=== PATIENT | female | born 1955 | race Caucasian/White ===

== ENCOUNTER 2018-01-13 18:01 | Observation (INO) ==
[2018-01-13] MEDS ORDERED: Nitroglycerin 0.4 MG TAB.SUBL SL ONE (18:07)
[2018-01-13] MEDS ORDERED: Aspirin 81 MG TAB.CHEW PO ONE (18:07)
[2018-01-13 18:32] LABS: Basophils % 0.4 %; Eosinophils # 0.2 K/mcL (0.0-0.6); Eosinophils % 1.7 %; Hematocrit 40.3 % (35.3-44.9); Hemoglobin 12.8 g/dL (11.5-15.4); Immature Granulocytes % 0.5 % (0-4); Lymphocytes # 2.7 K/mcL (0.6-4.6); Lymphocytes % 27.1 %; Mean Corpuscular HGB Conc 31.8 g/dL (31.6-35.5); Mean Corpuscular Hemoglobin 29.8 pg (28.0-33.3); Mean Corpuscular Volume 93.7 fL (83.0-100.0); Mean Platelet Volume 10.2 fL (9.4-12.4); Monocytes # 0.6 K/mcL (0.0-1.3); Monocytes % 5.6 %; Neutrophils # 6.5 K/mcL (1.6-8.9); Platelet Count 258 K/mcL (140-400); Red Cell Distribution Width 14.6 % (11.5-14.5); Segmented Neutrophils % 64.7 %
[2018-01-13 18:38] LABS: INR 0.9; Prothrombin Time 10.1 Seconds (9.4-12.1)
--- NOTE | 2018-01-13 18:40 | Emergency Department Note ---
Disposition Clinical Impression: Chest pain of uncertain etiology Disposition: Admitted As Inpatient Condition: Fair Chest Pain HPI - General Chief Complaint: ED Chest Pain Stated Complaint: "chest pain" Source: EMS Limitations: no limitations Vital Signs Reviewed: Yes Nursing Notes Reviewed: Yes - History of Present Illness HPI Narrative: Ms. Brown, 62-year-old female, presents from home via EMS for evaluation of chest pain. Onset one hour prior to arrival while sitting. Described as lower chest intense squeeze with radiation to her back. Associated with diaphoresis. No radiation to her neck or her bilateral upper extremities. Associated with nausea. She took a single sublingual nitroglycerin glycerin of her boyfriends prescription (4 years ) which did substantially improve her chest pain down to a 1-2. She now has a headache that is of greater concern to her that her chest pain. PMH: Obesity, hypertension, hyperlipidemia. History of "an arrhythmia," of unknown specifics to the patient. She does not follow with cardiology ROS: Positive: As above Negative: Fever, chills, vomiting, dyspnea, abdominal pain, weakness/numbness/ tingling, changes in vision, neck pain Severity scale (1-10): 4 - Related Data Home Medications Medication Instructions Recorded Confirmed Aspirin 81 mg PO QAM 12/07/15 01/13/18 DiphenhydraMINE [Benadryl] 50 mg PO HS 12/07/15 01/13/18 Pantoprazole Sodium [Protonix] 40 mg PO BID 12/07/15 01/13/18 Simvastatin [Zocor] 20 mg PO QPM 12/07/15 01/13/18 Fluticasone/Salmeterol [Advair 1 puff IH BID 11/15/17 01/13/18 100-50 Diskus] Ibuprofen 1 tab PO BID PRN 11/15/17 01/13/18 Metoprolol Tartrate 25 mg PO BID 11/15/17 01/13/18 Venlafaxine [Effexor] 37.5 mg PO BID 11/15/17 01/13/18 Previous Rx's Medication Instructions Recorded Albuterol Sulfate [Ventolin Hfa] 2 puff IH Q4-6H #1 hfa.aer.ad 01/19/17 Allergies Allergy/AdvReac Type Severity Reaction Status Date / Time Sulfa (Sulfonamide AdvReac See Verified 12/03/17 09:19 Antibiotics) Comments All systems ED: reviewed and negative except as stated. Review of Systems: As Per HPI Chest Pain PMH - Past Medical History Medical history: Reports: non-contributory, GERD, hyperlipidemia, hypertension Surgical history: Reports: cataract, hysterectomy, knee replacement Psychiatric history: Reports: anxiety - Social History Smoking Status: Former smoker Alcohol use: Reports: none Drug use: Reports: none Physical Exam Vital Signs Reviewed General: Patient is alert, oriented, and in mild distress from her headache. Head: atraumatic, normocephalic Eye: normal appearance, PERRL, EOMI, no scleral icterus, no conjunctival injection ENT: mucous membranes moist, normal external ear exam Neck: normal inspection, trachea midline, full ROM Chest: normal inspection, symmetric chest rise Respiratory: Poor respiratory effort. Bilateral breath sounds are clear without wheezing, crackles, or rhonchi. Cardiovascular: Regular rate and rhythm. No clicks, rubs, gallops, or murmors. Normal heart sounds. Bilateral radial posterior tibial pulses 2/44. Abdomen: Obese. Bowel sounds present normoactive x-4 quadrants. Abdomen is soft, nondistended, and nontender. No guarding or rebound. Musculoskeletal: Spontaneously moving all extremities. Skin: warm, dry, intact. Neuro: Alert and oriented x4. Sensation light touch intact. Psych: Patient's affect is appropriate for situation. - General Limitations: no limitations General appearance: alert Course Course Narrative: Chart check shows from November 2015: Today stress test perfusion imaging negative for ischemia or infarct. Rare isolated PVCs and one episode of ventricular bigeminy. Gated EF =>70%. No ischemic EKG changes. Echo showed normal LV systolic function, LVEF 65-70%. EKG dated 01/13/18 at 18:06 interpreted as sinus rhythm with rate of 77. Normal intervals. Normal axis. Nonspecific ST-T changes. Compared to previous dated 11/05/2017 showing no acute ischemic changes comparison. Serum hematology is unremarkable. Serum chemistry shows for less than 0.03. No renal dysfunction. Discussed the above the patient is agreement to admission for continued evaluation to rule out coronary syndrome. I discussed the patient with the admitting hospitalist who agrees to accept the patient for continued evaluation and management for chest pain rule out ACS. Vital Signs Temperature 97.2 F L 01/13/18 18:03 Pulse Rate 75 01/13/18 18:03 Respiratory Rate 16 01/13/18 18:03 Blood Pressure 155/83 01/13/18 18:03 O2 Sat by Pulse Oximetry 94 01/13/18 18:03 Temperature 98.2 F 01/13/18 20:39 Pulse Rate 78 01/13/18 20:39 Respiratory Rate 17 01/13/18 20:39 Blood Pressure 125/76 01/13/18 20:39 O2 Sat by Pulse Oximetry 92 01/13/18 20:39 Oxygen Delivery Oxygen Delivery Room Air Chest Pain - Lab Data Result diagrams: 01/13/18 18:16 01/13/18 18:16 Lab Results 01/13/18 01/13/18 01/13/18 Range/Units 18:16 18:16 18:16 WBC 10.0 (4.3-11.1) K/mcL RBC 4.30 (3.82-4.97) M/mcL Hgb 12.8 (11.5-15.4) g/dL Hct 40.3 (35.3-44.9) % MCV 93.7 (83.0-100.0) fL MCH 29.8 (28.0-33.3) pg MCHC 31.8 (31.6-35.5) g/dL RDW 14.6 H (11.5-14.5) % Plt Count 258 (140-400) K/mcL MPV 10.2 (9.4-12.4) fL Immature Gran % 0.5 (0-4) % Seg Neutrophils % 64.7 % Lymphocytes % 27.1 % Monocytes % 5.6 % Eosinophils % 1.7 % Basophils % 0.4 % Neutrophils # 6.5 (1.6-8.9) K/mcL Lymphocytes # 2.7 (0.6-4.6) K/mcL Monocytes # 0.6 (0.0-1.3) K/mcL Eosinophils # 0.2 (0.0-0.6) K/mcL Basophils # 0.0 (0.0-0.2) K/mcL PT 10.1 (9.4-12.1) Seconds INR 0.9 APTT 27.1 (26.0-36.0) Seconds Sodium 139 (136-145) mEq/L Potassium 4.0 (3.5-5.1) mEq/L Chloride 104 (98-107) mEq/L Carbon Dioxide 26 (23-29) mEq/L BUN 19 (8-23) mg/dL Creatinine 0.71 (0.60-1.20) mg/dL Est GFR ( Amer) > 60 (> 60) Est GFR (Non-Af Amer) > 60 (> 60) BUN/Creatinine Ratio 27 H (6-26) Glucose 117 H (70-105) mg/dL Calculated Osmolality 291 (280-300) Calcium 9.2 (8.6-10.3) mg/dL Troponin I < 0.03 (< 0.04) ng/mL Lipase 16 (11-82) Units/L Heart Score - Score History: Slightly Suspicious EKG: Non Specific repolarisation Disturbance Age: 45-65 Risk Factors: Equal/Greater than 3 risk factor or history of atherosclerotic disease Troponin: Less than normal limit HEART Score Total: 4
[2018-01-13 18:41] LABS: Activated Partial Thrombo Time 27.1 Seconds (26.0-36.0)
[2018-01-13 18:50] LABS: BUN/Creatinine Ratio 27 (6-26); Blood Urea Nitrogen 19 mg/dL (8-23); Calcium 9.2 mg/dL (8.6-10.3); Carbon Dioxide 26 mEq/L (23-29); Chloride 104 mEq/L (98-107); Glucose 117 mg/dL (70-105); Osmolality,Calculated 291 (280-300); Sodium 139 mEq/L (136-145); eGFR For African Americans > 60 (> 60); eGFR For Non-African Americans > 60 (> 60)
[2018-01-13] MEDS: Ondansetron 4 MG/2 ML VIAL IVP ONE ×2 (18:51→19:05)
[2018-01-13 18:52] LABS: Troponin I < 0.03 ng/mL (< 0.04)
[2018-01-13] MEDS ORDERED: Nitroglycerin 0.4 MG TAB.SUBL SL PRN (19:35)
[2018-01-13] MEDS ORDERED: Naloxone 0.4 MG/ML INJ IVP PRN (19:35)
--- NOTE | 2018-01-13 19:41 | Internal Med History&Physical ---
Date of Encounter: 01/13/18 Time of Encounter: 19:39 Internal Medicine - H&P: HPI Chief complaint: chest pain Admitted From: Emergency Dept Plans for Post Hospital Care: Home History of present illness: Ms. Brown is a 62 year old female with history of morbid obesity, HTN, HLD who presents from home via EMS for evaluation of chest pain. Started about an hour or so prior to arrival. Was not exertional. Radiates to back. + nausea and diaphoresis. SL nitro from boyfriend helped significantly. Had headache afterwards. No blurry vision, fever, chills, shortness of breath, abdominal pain, diarrhea, constipation, urinary symptoms, or neurological symptoms. Work up in the ED unremarkable. EKG with no acute ST or T wave changes. Trops first set not elevated. Hemodynamically stable. Given ASA 324 mg in ED as well as SL nitro. Had a negative stress test 2 years ago. Past Med Surg Social Fam HX - Past Medical History Medical history: non-contributory, GERD, hyperlipidemia, hypertension Psychiatric history: anxiety - Past Surgical History Surgical History: cataract, hysterectomy, knee replacement - Social History Smoking Status: Former smoker Smokeless Tobacco Status: No Alcohol use: none Drug use: none - Family History Brother Hx Family Cardiac Disorders: Yes (CABG 50s) Mother Living Status: Hx Family Cardiac Disorders: Yes Hx Family Neurologic Disorders: Yes Internal Medicine - H&P: Meds Aspirin 81 mg PO QAM 12/07/15 [History] DiphenhydraMINE [Benadryl] 50 mg PO HS 12/07/15 [History] Pantoprazole Sodium [Protonix] 40 mg PO BID 12/07/15 [History] Simvastatin [Zocor] 20 mg PO QPM 12/07/15 [History] Albuterol Sulfate [Ventolin Hfa] 2 puff IH Q4-6H #1 hfa.aer.ad 01/19/17 [Rx] Fluticasone/Salmeterol [Advair 100-50 Diskus] 1 puff IH BID 11/15/17 [History] Ibuprofen 1 tab PO BID PRN 11/15/17 [History] Metoprolol Tartrate 25 mg PO BID 11/15/17 [History] Venlafaxine [Effexor] 37.5 mg PO BID 11/15/17 [History] 3 Allergy/AdvReac Type Severity Reaction Status Date / Time Sulfa (Sulfonamide AdvReac See Verified 12/03/17 09:19 Antibiotics) Comments All Systems PM: A 10-system review of systems was performed and is negative for pertinent findings except as documented above in the HPI. Review of systems: All systems reviewed are negative except as mentioned above - Constitutional Vitals: Temp Pulse Resp BP Pulse Ox 97.2 F L 80 16 155/83 94 01/13/18 18:03 01/13/18 19:03 01/13/18 19:03 01/13/18 19:03 01/13/18 19:03 Exam: GEN: NAD HEENT: AT, NC, No cyanosis, oral mucosa is moist, No JVD Lymphatics: No lymphadenoapthy Eyes: Extrocular muscles intact, anicteric CVS:RRR. S1, S2, No m/r/g RESP: CTAB ABD: Soft, NT, ND, +BS EXT: No edema, No rashes, 2+ DP NEURO: Nonfocal, CN II-XII intact, No focal motor or sensory deficits Psych: Cooperative, Not anxious or depressed Internal Med - H&P Results - Labs CBC & Chem 7: 01/13/18 18:16 01/13/18 18:16 Labs: Short CBC 01/13/18 Range/Units 18:16 WBC 10.0 (4.3-11.1) K/mcL Hgb 12.8 (11.5-15.4) g/dL Hct 40.3 (35.3-44.9) % Plt Count 258 (140-400) K/mcL Neutrophils # 6.5 (1.6-8.9) K/mcL BMP 01/13/18 18:16 Sodium 139 Potassium 4.0 Chloride 104 Carbon Dioxide 26 BUN 19 Creatinine 0.71 Glucose 117 H Calcium 9.2 Cardiac Enzymes 01/13/18 Range/Units 18:16 Troponin I < 0.03 (< 0.04) ng/mL - Impressions ITS Impressions Chest X-Ray 01/13/18 18:07 IMPRESSION: Stable portable study. D/ / Valentina Calvo Cha, MD / Valentina Calvo Cha, MD Interpreting Provider: Valentina Calvo Cha, MD - Assessment and plan (1) Chest pain Current Visit: No Status: Acute Assessment and plan: Admit to tele. Trend cardiac enzymes. Stress test in am. NPO after midnight. Check lipid panel and A1c. SL nitro PRN. Qualifiers: Chest pain type: unspecified Qualified Code(s): R07.9 - Chest pain, unspecified (2) HTN (hypertension) Current Visit: No Status: Chronic Assessment and plan: c/w metoprolol. BP is stable. Qualifiers: Hypertension type: essential hypertension Qualified Code(s): I10 - Essential (primary) hypertension (3) Hyperlipemia Current Visit: No Status: Chronic Assessment and plan: c/w statin. f/u on lipid panel Qualifiers: Hyperlipidemia type: unspecified Qualified Code(s): E78.5 - Hyperlipidemia , unspecified (4) DVT prophylaxis Current Visit: No Status: Acute Assessment and plan: heparin SQ - Time Spent With Patient Total time spent is greater than 50% in coordination of care (as documented) at patient's floor/unit and/or counseling patient:
[2018-01-13 19:59] LABS: Lipase 16 Units/L (11-82)
--- NOTE | 2018-01-13 20:07 | Emergency Department Note ---
Disposition Clinical Impression: Chest pain of uncertain etiology Disposition: Admitted As Inpatient Condition: Fair General Adult HPI - General Chief complaint: ED Chest Pain Stated complaint: "chest pain" Source: EMS Limitations: no limitations - History of Present Illness Pain Scale: 4 - Related Data Home Medications Medication Instructions Recorded Confirmed Aspirin 81 mg PO QAM 12/07/15 01/13/18 DiphenhydraMINE [Benadryl] 50 mg PO HS 12/07/15 01/13/18 Pantoprazole Sodium [Protonix] 40 mg PO BID 12/07/15 01/13/18 Simvastatin [Zocor] 20 mg PO QPM 12/07/15 01/13/18 Fluticasone/Salmeterol [Advair 1 puff IH BID 11/15/17 01/13/18 100-50 Diskus] Ibuprofen 1 tab PO BID PRN 11/15/17 01/13/18 Metoprolol Tartrate 25 mg PO BID 11/15/17 01/13/18 Venlafaxine [Effexor] 37.5 mg PO BID 11/15/17 01/13/18 Previous Rx's Medication Instructions Recorded Albuterol Sulfate [Ventolin Hfa] 2 puff IH Q4-6H #1 hfa.aer.ad 01/19/17 Allergies Allergy/AdvReac Type Severity Reaction Status Date / Time Sulfa (Sulfonamide AdvReac See Verified 12/03/17 09:19 Antibiotics) Comments Past Medical History - Past Medical History Medical history: Reports: non-contributory, GERD, hyperlipidemia, hypertension Surgical history: Reports: cataract, hysterectomy, knee replacement Psychiatric history: Reports: anxiety - Social History Smoking Status: Former smoker Smokeless Tobacco Status: No Alcohol use: Reports: none Drug use: Reports: none Physical Exam - General Limitations: no limitations General appearance: alert Course Vital Signs Temperature 97.2 F L 01/13/18 18:03 Pulse Rate 75 01/13/18 18:03 Respiratory Rate 16 01/13/18 18:03 Blood Pressure 155/83 01/13/18 18:03 O2 Sat by Pulse Oximetry 94 01/13/18 18:03 Temperature 98.2 F 01/13/18 20:39 Pulse Rate 78 01/13/18 20:39 Respiratory Rate 17 01/13/18 20:39 Blood Pressure 125/76 01/13/18 20:39 O2 Sat by Pulse Oximetry 92 04/30/18 20:39 Oxygen Delivery Oxygen Delivery Room Air Medical Decision Making - Lab Data Result diagrams: 01/13/18 18:16 01/13/18 18:16 Lab Results 01/13/18 01/13/18 01/13/18 Range/Units 18:16 18:16 18:16 WBC 10.0 (4.3-11.1) K/mcL RBC 4.30 (3.82-4.97) M/mcL Hgb 12.8 (11.5-15.4) g/dL Hct 40.3 (35.3-44.9) % MCV 93.7 (83.0-100.0) fL MCH 29.8 (28.0-33.3) pg MCHC 31.8 (31.6-35.5) g/dL RDW 14.6 H (11.5-14.5) % Plt Count 258 (140-400) K/mcL MPV 10.2 (9.4-12.4) fL Immature Gran % 0.5 (0-4) % Seg Neutrophils % 64.7 % Lymphocytes % 27.1 % Monocytes % 5.6 % Eosinophils % 1.7 % Basophils % 0.4 % Neutrophils # 6.5 (1.6-8.9) K/mcL Lymphocytes # 2.7 (0.6-4.6) K/mcL Monocytes # 0.6 (0.0-1.3) K/mcL Eosinophils # 0.2 (0.0-0.6) K/mcL Basophils # 0.0 (0.0-0.2) K/mcL PT 10.1 (9.4-12.1) Seconds INR 0.9 APTT 27.1 (26.0-36.0) Seconds Sodium 139 (136-145) mEq/L Potassium 4.0 (3.5-5.1) mEq/L Chloride 104 (98-107) mEq/L Carbon Dioxide 26 (23-29) mEq/L BUN 19 (8-23) mg/dL Creatinine 0.71 (0.60-1.20) mg/dL Est GFR ( Amer) > 60 (> 60) Est GFR (Non-Af Amer) > 60 (> 60) BUN/Creatinine Ratio 27 H (6-26) Glucose 117 H (70-105) mg/dL Calculated Osmolality 291 (280-300) Calcium 9.2 (8.6-10.3) mg/dL Troponin I < 0.03 (< 0.04) ng/mL Lipase 16 (11-82) Units/L Attestation Statement - Attestation Attestation: I examined this patient and my medical decision-making was reviewed with the Resident Physician, Dr. Gloria. I agree with the documented findings, disposition and treatment plan as described except to the extent set forth below. Patient is a 62-year-old white female with numerous risk factors who presents to the emergency department with a one-hour history of chest pain that began at rest. Pain is substernal nonradiating associated with diaphoresis and nausea. Patient denies any shortness of breath, no abdominal pain or flank pain no lightheadedness or syncope. Patient states that approximately 25-30 years ago she had a heart catheter for chest pain at that time and was told that she had disease in multiple vessels. Patient is not had a heart catheter since that time approximately 3 years ago was admitted here for chest pain and had a stress test. Patient tonight when the pain came on took one of her boyfriend's nitroglycerin which almost completely relieved her symptoms. I agree with patient's physical exam findings as documented. Vital signs are stable on arrival patient is rating pain of one out of 10 in severity on time of presentation. Patient's EKG shows no acute ST or T-wave changes sinus rhythm. Patient was given aspirin but refused any further nitroglycerin. Patient's lab evaluation is unremarkable overall and chest x-ray is within normal limits. Patient's had no recurrence of symptoms or worsening of symptoms. Patient will be admitted for further evaluation of chest pain case will be discussed with hospitalist.
[2018-01-13] MEDS: Budesonide/Formoterol 80/4.5 MDI IH SCH (21:37)
[2018-01-13] MEDS: *HR* Heparin 5,000 UNIT/ML VIAL SQ SCH (22:11)
[2018-01-13] MEDS: Acetaminophen 325 MG TABLET PO PRN (23:44)
[2018-01-14] MEDS: *HR* Heparin 5,000 UNIT/ML VIAL SQ SCH ×3 (05:20→21:26)
[2018-01-14] MEDS ORDERED: Regadenoson 0.4 MG/5 ML SYRINGE IVP ONE (05:30)
[2018-01-14 09:34] LABS: Estimated Average Glucose 140 mg/dl; Hemoglobin A1C 6.5 %
[2018-01-14] MEDS: Aspirin 81 MG TAB.CHEW PO SCH (09:45)
[2018-01-14] MEDS: Budesonide/Formoterol 80/4.5 MDI IH SCH ×2 (10:14→21:18)
--- NOTE | 2018-01-14 16:15 | Electrocardiograph Report ---
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
--- NOTE | 2018-01-14 18:56 | Internal Med Progress Note ---
Date of Encounter: 01/14/18 Time of Encounter: 18:53 - Assessment and plan (1) Chest pain Current Visit: Yes Status: Acute Assessment and plan: Patient sent for evaluation of nonexertional radiating chest pain, was positive for nausea and diaphoresis. Chest pain was responsive to nitroglycerin. Concerning for [place]. Risk factors include obesity, hypertension, and family history. Underwent phase I nuclear stress today and will do secondary nuclear stress tomorrow morning. No ST elevations, depressions or T-wave inversions noted on EKG Troponin is negative at 0.033 Continuous telemetry Lipid panel grossly normal Continue SL nitroglycerin when necessary, however if possible refrain from giving SL nitroglycerin after midnight Patient may for now however needs to be nothing by mouth at midnight Continue aspirin, statin, beta jayden Consider counseling cardiology based on results of stress test Qualifiers: Chest pain type: unspecified Qualified Code(s): R07.9 - Chest pain, unspecified (2) Hyperlipemia Current Visit: Yes Status: Chronic Assessment and plan: Continue statin. Lipid panel grossly normal with cholesterol 177, LDL 91, HDL of 59 and triglycerides of 135. Qualifiers: Hyperlipidemia type: unspecified Qualified Code(s): E78.5 - Hyperlipidemia , unspecified (3) HTN (hypertension) Current Visit: Yes Status: Chronic Assessment and plan: BP is currently stable, continue anti-HTN medications Hold a.m. dose of beta jayden prior to stress test Qualifiers: Hypertension type: essential hypertension Qualified Code(s): I10 - Essential (primary) hypertension (4) DVT prophylaxis Current Visit: Yes Status: Acute Assessment and plan: Continue heparin SQ - Time Spent With Patient Total time spent is greater than 50% in coordination of care (as documented) at patient's floor/unit and/or counseling patient: - Subjective Interval history: Ms. Brown is a 62 year old female with history of morbid obesity, HTN, HLD who presents from home via EMS for evaluation of chest pain. Started about an hour or so prior to arrival. Was not exertional. Radiates to back. + nausea and diaphoresis. SL nitro from boyfriend helped significantly. Patient seen and examined at the bedside. Denying any current chest pain now. Also, the denying any shortness of breath or diaphoresis. In no distress at this time - Constitutional Vitals: Temp Pulse Resp BP Pulse Ox 98.0 F 77 18 119/64 95 01/14/18 16:06 01/14/18 16:06 01/14/18 16:06 01/14/18 16:06 01/14/18 16:06 General appearance: Present: cooperative, A&O X 3, no acute distress, answers questions appropriately - Head Head exam: Present: atraumatic, normocephalic - Eye Eye exam: Present: PERRL, conjuntiva pink, sclera anicteric Pupils: Present: PERRL - Neck Neck exam general surgery: Present: supple, trachea midline. Absent: lymphadenopathy - Respiratory Respiratory exam: Present: CTAB. Absent: accessory muscle use, rales, rhonchi, wheezes - Cardiovascular Cardiovascular exam: Present: RRR, +S1, +S2. Absent: diastolic murmur, gallop, rubs, systolic murmur - GI/Abdominal GI/Abdominal exam: Present: normal bowel sounds, soft, no peritoneal signs. Absent: distended, tenderness - Extremities Exam Extremities exam: Present: warm, radial pulses palpable and symmetrical. Absent : calf tenderness, cyanotic, pedal edema - Neurological Exam Neurological exam: Present: CN II-XII intact, oriented X3, no focal deficits. Absent: pronater drift, facial droop, speech deficit - Skin Skin exam: Present: dry, intact Internal Medicine: Result - Labs CBC & Chem 7: 01/13/18 18:16 01/13/18 18:16 Labs: Cardiac Enzymes 01/14/18 01/14/18 Range/Units 00:17 06:03 Troponin I < 0.03 < 0.03 (< 0.04) ng/mL - ABG Interpretation ABG results: PT/INR, D-dimer PT 10.1 Seconds (9.4-12.1) 01/13/18 18:16 Consult Discharge Plan - Plan Referrals: Ely Devine DO [Primary Care Provider] -
[2018-01-14] MEDS: Acetaminophen 325 MG TABLET PO PRN (19:57)
[2018-01-15] MEDS: *HR* Heparin 5,000 UNIT/ML VIAL SQ SCH ×2 (05:18→14:14)
[2018-01-15] MEDS: Budesonide/Formoterol 80/4.5 MDI IH SCH (08:04)
[2018-01-15] MEDS: Aspirin 81 MG TAB.CHEW PO SCH (08:27)
[2018-01-15] MEDS: Acetaminophen 325 MG TABLET PO PRN (11:11)
[2018-01-15 11:21] VITALS: BP 130/64
--- NOTE | 2018-01-15 13:17 | Internal Med Progress Note ---
Date of Encounter: 01/15/18 Time of Encounter: 12:30 - Assessment and plan (1) Chest pain Current Visit: Yes Status: Acute Assessment and plan: Patient presented with nonexertional radiating chest pain with nausea and diaphoresis. Chest pain improved with nitroglycerin. Multiple risk factors including obesity, hypertension and family history of early cardiac demise. Underwent today stress and was found to be negative for ischemia. Troponins found to be negative throughout the stay, EKG shows no ST elevation, depressions or T-wave inversions. Chest pain has subsided. She remains hemodynamically stable. She is ready for discharge Follow-up with cardiology in 1 week Follow-up with PCP in one week May benefit from echocardiogram however, will defer this to cardiology during follow-up visit Qualifiers: Chest pain type: unspecified Qualified Code(s): R07.9 - Chest pain, unspecified (2) Hyperlipemia Current Visit: Yes Status: Chronic Qualifiers: Hyperlipidemia type: unspecified Qualified Code(s): E78.5 - Hyperlipidemia , unspecified (3) HTN (hypertension) Current Visit: Yes Status: Chronic Assessment and plan: BP is currently stable and has remained so throughout hospital stay., continue anti-HTN medications upon discharge Qualifiers: Hypertension type: essential hypertension Qualified Code(s): I10 - Essential (primary) hypertension (4) DVT prophylaxis Current Visit: Yes Status: Acute - Time Spent With Patient Total time spent is greater than 50% in coordination of care (as documented) at patient's floor/unit and/or counseling patient: - Subjective Interval history: Ms. Brown is a 62 year old female with history of morbid obesity, HTN, HLD who presents from home via EMS for evaluation of chest pain. Started about an hour or so prior to arrival. Was not exertional. Radiates to back. + nausea and diaphoresis. SL nitro from boyfriend helped significantly. Patient seen and examined at the bedside. Denying any SOB or chest pain today. In no distress at this time. Underwent stress test #2 of 2-day stress test. - Constitutional Vitals: Temp Pulse Resp BP Pulse Ox 98.2 F 71 14 130/64 93 01/15/18 11:18 01/15/18 11:18 01/15/18 11:18 01/15/18 11:18 01/15/18 11:18 General appearance: Present: cooperative, A&O X 3, morbidly obese, no acute distress, answers questions appropriately - Head Head exam: Present: atraumatic, normocephalic - Eye Eye exam: Present: PERRL, conjuntiva pink, sclera anicteric Pupils: Present: PERRL - Neck Neck exam general surgery: Present: supple, trachea midline. Absent: lymphadenopathy - Respiratory Respiratory exam: Present: CTAB. Absent: accessory muscle use, rales, rhonchi, wheezes - Cardiovascular Cardiovascular exam: Present: RRR, +S1, +S2. Absent: diastolic murmur, gallop, rubs, systolic murmur - GI/Abdominal GI/Abdominal exam: Present: normal bowel sounds, soft, no peritoneal signs. Absent: distended, tenderness - Extremities Exam Extremities exam: Present: warm, radial pulses palpable and symmetrical. Absent : calf tenderness, cyanotic, pedal edema - Neurological Exam Neurological exam: Present: CN II-XII intact, oriented X3, no focal deficits. Absent: pronater drift, facial droop, speech deficit - Skin Skin exam: Present: dry, intact Internal Medicine: Result - Labs CBC & Chem 7: 01/13/18 18:16 01/13/18 18:16 - ABG Interpretation ABG results: PT/INR, D-dimer PT 10.1 Seconds (9.4-12.1) 01/13/18 18:16 Consult Discharge Plan - Plan Referrals: Ely Devine DO [Primary Care Provider] -
--- NOTE | 2018-01-15 13:27 | Discharge Summary ---
- NOTES TO OUTPATIENT PROVIDER Notes to Outpatient Provider: Follow-up with cardiology in 1 week to discuss results of stress test. Patient also requesting the risks and benefits of left heart catheter. Discuss with cardiology during follow-up. Follow-up with PCP in one week-patient was admitted for ACS rule out. Stress test found to be negative 2. EKG with no acute changes, troponins negative. Discuss lifestyle modifications. Orders not resulted at time of discharge: Pending orders 01/15/18 08:35 EV echocardiogram Routine Date of Encounter: 01/15/18 Time of Encounter: 13:24 - Discharge Diagnosis (1) Chest pain Priority: Primary Status: Acute Assessment and Plan: Patient presented with nonexertional radiating chest pain with nausea and diaphoresis. Chest pain improved with nitroglycerin. Multiple risk factors including obesity, hypertension and family history of early cardiac demise. Underwent today stress and was found to be negative for ischemia. Troponins found to be negative throughout the stay, EKG shows no ST elevation, depressions or T-wave inversions. Chest pain has subsided. She remains hemodynamically stable. She is ready for discharge Follow-up with cardiology in 1 week Follow-up with PCP in one week May benefit from echocardiogram however, will defer this to cardiology during follow-up visit Qualifiers: Chest pain type: unspecified Qualified Code(s): R07.9 - Chest pain, unspecified (2) Hyperlipemia Priority: Secondary Status: Chronic Assessment and Plan: Continue statin. Lipid panel grossly normal with cholesterol 177, LDL 91, HDL of 59 and triglycerides of 135. Qualifiers: Hyperlipidemia type: unspecified Qualified Code(s): E78.5 - Hyperlipidemia , unspecified (3) HTN (hypertension) Priority: Secondary Status: Chronic Assessment and Plan: BP is currently stable and has remained so throughout hospital stay., continue anti-HTN medications upon discharge Qualifiers: Hypertension type: essential hypertension Qualified Code(s): I10 - Essential (primary) hypertension (4) DVT prophylaxis Priority: Secondary Status: Acute Assessment and Plan: Continue heparin SQ Hospital course: Ms. Brown is a 62 year old female Discharge discussed with: patient, nurse - Time Spent with Patient Total time spent providing and/or coordinating discharge services: Less than 30 minutes - Discharge Medications Home Medications: Aspirin 81 mg PO QAM 03/23/16 [History] DiphenhydraMINE [Benadryl] 50 mg PO HS 12/07/15 [History] Pantoprazole Sodium [Protonix] 40 mg PO BID 12/07/15 [History] Simvastatin [Zocor] 20 mg PO QPM 12/07/15 [History] Albuterol Sulfate [Ventolin Hfa] 2 puff IH Q4-6H #1 hfa.aer.ad 01/19/17 [Rx] Fluticasone/Salmeterol [Advair 100-50 Diskus] 1 puff IH BID 11/15/17 [History] Ibuprofen 1 tab PO BID PRN 11/15/17 [History] Metoprolol Tartrate 25 mg PO BID 11/15/17 [History] Venlafaxine [Effexor] 37.5 mg PO BID 11/15/17 [History] Allergies/Adverse Reactions: 3 Allergy/AdvReac Type Severity Reaction Status Date / Time Sulfa (Sulfonamide AdvReac See Verified 12/03/17 09:19 Antibiotics) Comments Date of admission: 01/13/18 19:43 Primary care physician: Hang Butt Discharging clinician: Javier Gaming Anticipated date of discharge: 01/15/18 - Constitutional Vitals: Temp Pulse Resp BP Pulse Ox 98.2 F 71 14 130/64 93 01/15/18 11:18 01/15/18 11:18 01/15/18 11:18 01/15/18 11:18 01/15/18 11:18 General appearance: Present: cooperative, A&O X 3, morbidly obese, no acute distress, answers questions appropriately - Eye Eye exam: Present: PERRL, conjuntiva pink, sclera anicteric Pupils: Present: PERRL - Neck Neck exam general surgery: Present: supple, trachea midline. Absent: lymphadenopathy - Respiratory Respiratory exam: Present: CTAB. Absent: accessory muscle use, rales, rhonchi, wheezes - Cardiovascular Cardiovascular exam: Present: RRR, +S1, +S2. Absent: diastolic murmur, gallop, rubs, systolic murmur - GI/Abdominal GI/Abdominal exam: Present: normal bowel sounds, soft, no peritoneal signs. Absent: distended, tenderness - Patient Status Disposition: Home, Self-Care Condition: Good Overall status at discharge: patient is back to baseline - Discharge Instructions Follow Up With: [facility] [Provider Group] Ely Devine DO [Primary Care Provider] - - Diet and Activity Diet: advance to your usual diet
== END 2018-01-15 15:40 | disposition home or self-care (01) ==
LOC: EMEROO 18:01 → 3BNU 18:01
PROVIDERS: ADMIT Internal Medicine; ATTEND Internal Medicine

== ENCOUNTER 2018-02-21 08:21 | Inpatient (IN) ==
--- NOTE | 2018-02-21 08:37 | Emergency Department Note ---
Disposition Clinical Impression: Multifocal pneumonia Dyspnea Qualifiers: Dyspnea type: shortness of breath Qualified Code(s): R06.02 - Shortness of breath; R06.00 - Dyspnea, unspecified; R06.01 - Orthopnea Disposition: Admitted As Inpatient Condition: Fair Referrals: Ely Devine DO [Primary Care Provider] - Forms: ED Satisfaction Letter Time of Disposition: 11:02 SOB HPI - General Chief Complaint: ED Shortness of Breath/Dyspnea Stated Complaint: SOB Time Seen by Provider: 02/21/18 08:22 Source: patient, EMS Limitations: no limitations Nursing Notes Reviewed: Yes Vital Signs Reviewed: Yes - History of Present Illness Nontoxic-appearing 62-year-old female presents for evaluation of shortness of breath, subjective fevers, and cough that is productive of blood-streaked sputum. She states a history of "breathing difficulties" over the past 2 months. She has seen a, neurologist and is scheduled for a pulmonary function test and sleep study. She was recently diagnosed with sleep apnea however has not yet using a CPAP. She is scheduled also well for a cardiac catheterization for this coming Saturday due to known blockages from a previous cath from 2005. She states she recently underwent a cardiac stress test which was normal. Her symptoms today became markedly worse overnight last night. Her shortness of breath was exacerbated she began to have a cough that was productive of a bloody sputum. She describes several episodes of posttussive emesis. She denies any associated chest pain or pain/swelling of the lower extremities. She states that home, she had taken an albuterol breathing treatment and symptoms became markedly worse. EMS stated that she was running 88% on room air upon their arrival and prior to the application of oxygen by nasal cannula at 2 L/m. Pt Subjective Complaint: shortness of breath Context: recent illness Severity: moderate Consistency/Duration: gradually worsening Improves with: nothing Worsens with: exertion Associated symptoms: Reports: fever, cough, wheezing, sputum production, hemoptysis, nausea/vomiting (Posttussive emesis). Denies: chest pain, pain with inspiration, orthopnea, lower extremity pain, palpitations Treatment prior to arrival: oxygen, bronchodilator Cough present: Yes Cough Description: Involuntary Cough Frequency: Intermittent Sputum production: Yes Sputum Amount: Small Sputum Color: Clear, Blood Streaked - Related Data Home oxygen amount: none Home Medications Medication Instructions Recorded Confirmed Aspirin 81 mg PO QAM 03/23/16 06/08/18 DiphenhydraMINE [Benadryl] 50 mg PO HS 12/07/15 02/21/18 Pantoprazole Sodium [Protonix] 40 mg PO BID 12/07/15 02/21/18 Fluticasone/Salmeterol [Advair 1 puff IH BID 11/15/17 02/21/18 100-50 Diskus] Ibuprofen 800 mg PO BID PRN 11/15/17 02/21/18 Venlafaxine [Effexor] 37.5 mg PO BID 11/15/17 02/21/18 Metoprolol [Lopressor] 25 mg PO BID 02/21/18 02/21/18 Simvastatin [Zocor] 20 mg PO HS 02/21/18 02/21/18 Previous Rx's Medication Instructions Recorded Albuterol Sulfate [Ventolin Hfa] 2 puff IH Q4-6H #1 hfa.aer.ad 01/19/17 Allergies Allergy/AdvReac Type Severity Reaction Status Date / Time Sulfa (Sulfonamide AdvReac See Verified 12/03/17 09:19 Antibiotics) Comments All systems ED: reviewed and negative except as stated. Constitutional: Reports: as per HPI, fever, chills. Denies: weakness, weight change Eyes: Denies: eye pain, eye discharge, vision change ENT ED: Denies: ear pain, throat pain, dental pain, hearing loss, epistaxis, congestion, dysphagia Cardiovascular: Denies: chest pain, palpitations, dyspnea on exertion, edema, syncope Respiratory: Reports: as per HPI, cough, wheezes, hemoptysis, sputum production. Denies: dyspnea, stridor Gastrointestinal: Denies: abdominal pain, nausea, vomiting, diarrhea, constipation, hematemesis, melena, hematochezia Genitourinary: Denies: dysuria, frequency, hematuria, discharge Musculoskeletal: Denies: back pain, neck pain, arthralgia, myalgia Integumentary: Denies: rash, abrasion, lesions Neurological: Denies: headache, weakness, numbness, paresthesias, confusion, abnormal gait, vertigo Psychiatric: Denies: anxiety, depression, suicidal thoughts, homicidal thoughts , auditory hallucinations, visual hallucinations Endocrine: Denies: fatigue Hematological/Lymphatic: Denies: easy bleeding, easy bruising Allergic/Immunologic: Denies: facial swelling, urticaria Past Medical History - Past Medical History Attestation: Yes The following information was validated with the patient. Source: patient, nursing notes reviewed Medical history: Reports: GERD, hyperlipidemia, hypertension Surgical history: Reports: cataract, hysterectomy, knee replacement Psychiatric history: Reports: anxiety - Social History Smoking Status: Former smoker Smokeless Tobacco Status: No Alcohol use: Reports: none Drug use: Reports: none Physical Exam - General Limitations: no limitations General appearance: alert - Head Head exam: atraumatic, normocephalic, normal inspection - Eye Eye exam: Present: normal appearance, PERRL, EOMI. Absent: nystagmus - ENT ENT exam: mucous membranes moist - Neck Neck exam: Present: normal inspection, full ROM, trachea midline - Chest Chest inspection: Present: normal inspection, symmetric chest wall rise - Respiratory Respiratory exam: Present: wheezes (Audible expiratory wheezes), other (lung sounds coarse throughout the periphery). Absent: respiratory distress, stridor , accessory muscle use, prolonged expiratory phase - Cardiovascular Cardiovascular exam: Present: normal rhythm, tachycardia, normal heart sounds - Abdominal Exam Abdominal exam: Present: soft, Non-Tender, normal bowel sounds - Extremities Exam Extremities exam: Present: normal inspection, full ROM. Absent: tenderness, pedal edema - Neurological Exam Neurological exam: Present: alert, oriented X3 - Psychiatric Psychiatric exam: Present: normal affect, normal mood - Skin Skin exam: Present: warm, dry, intact, normal color. Absent: rash Course Course Narrative: 1030: Initial x-ray report read as mild to moderate congestive heart failure however her BNP level did not correlate with that. For that reason, IV fluid was withheld waiting on CTA imaging. CTA results the chest showed no pulmonary embolism. Patchy airspace opacities are likely multifocal pneumonia according to the radiologist report. Slightly tachycardic. Her initial lactate was elevated at 2.9. White blood cell count of 14,000. She will be started on antibiotics and admitted to the hospitalist service. I spoke with Dr. Da Silva of the Hospital services accepted patient for admission to the hospitalist care for further treatment of her multifocal pneumonia. He is in agreement with only a 1 L bolus of IV fluid at this time. I discussed this patient's case with Dr. Simental, ED attending. Dr. Eric has had a [id number] evaluation with the patient and agrees with this plan. Vital Signs Temperature 100.6 F H 02/21/18 08:23 Pulse Rate 110 02/21/18 08:23 Respiratory Rate 14 02/21/18 08:23 Blood Pressure 105/83 02/21/18 08:23 O2 Sat by Pulse Oximetry 92 02/21/18 08:23 Temperature 100.6 F H 02/21/18 08:23 Pulse Rate 107 02/21/18 10:24 Respiratory Rate 21 02/21/18 10:24 Blood Pressure 137/70 02/21/18 10:24 O2 Sat by Pulse Oximetry 95 02/21/18 10:24 Oxygen Delivery Oxygen Delivery Nasal Cannula Shortness of Breath/Dyspnea - Medical Records Medical records reviewed: Yes I reviewed the patient's medical records. - Lab Data Lab results reviewed: Yes I reviewed the patient's lab results. Lab results narrative: Laboratory Last Values WBC 14.1 K/mcL (4.3-11.1) H D 02/21/18 08:27 RBC 4.73 M/mcL (3.82-4.97) 02/21/18 08:27 Hgb 13.9 g/dL (11.5-15.4) D 02/21/18 08:27 Hct 44.6 % (35.3-44.9) 02/21/18 08:27 MCV 94.3 fL (83.0-100.0) 02/21/18 08:27 MCH 29.4 pg (28.0-33.3) 02/21/18 08:27 MCHC 31.2 g/dL (31.6-35.5) L 02/21/18 08:27 RDW 14.3 % (11.5-14.5) 02/21/18 08:27 Plt Count 241 K/mcL (140-400) 02/21/18 08:27 MPV 10.6 fL (9.4-12.4) 02/21/18 08:27 Immature Gran % 0.4 % (0-4) 02/21/18 08:27 Seg Neutrophils % 87.0 % 02/21/18 08:27 Lymphocytes % 8.6 % 02/21/18 08:27 Monocytes % 3.4 % 02/21/18 08:27 Eosinophils % 0.5 % 02/21/18 08:27 Basophils % 0.1 % 02/21/18 08:27 Neutrophils # 12.3 K/mcL (1.6-8.9) H 02/21/18 08:27 Lymphocytes # 1.2 K/mcL (0.6-4.6) 02/21/18 08:27 Monocytes # 0.5 K/mcL (0.0-1.3) 02/21/18 08:27 Eosinophils # 0.1 K/mcL (0.0-0.6) 02/21/18 08:27 Basophils # 0.0 K/mcL (0.0-0.2) 02/21/18 08:27 PT 10.0 Seconds (9.4-12.1) 02/21/18 08: INR 0.9 02/21/18 08: APTT 20.7 Seconds (26.0-36.0) L 02/21/18 08:27 D-Dimer 2911 ng/mLFEU (0-500) H 02/21/18 08:27 Sodium 139 mEq/L (136-145) 02/21/18 08:27 Potassium 4.2 mEq/L (3.5-5.1) 02/21/18 08: Chloride 104 mEq/L (98-107) 02/21/18 08:27 Carbon Dioxide 25 mEq/L (23-29) 02/21/18 08:27 BUN 19 mg/dL (8-23) 02/21/18 08: Creatinine 0.61 mg/dL (0.60-1.20) 02/21/18 08:27 Est GFR ( Amer) > 60 (> 60) 02/21/18 08:27 Est GFR (Non-Af Amer) > 60 (> 60) 02/21/18 08: BUN/Creatinine Ratio 31 (6-26) H 02/21/18 08:27 Glucose 157 mg/dL (70-105) H 02/21/18 08:27 Calculated Osmolality 294 (280-300) 02/21/18 08:27 Lactic Acid 2.5 mmol/L (0.5-2.2) H 02/21/18 10:31 Calcium 9.3 mg/dL (8.6-10.3) 02/21/18 08:27 Troponin I < 0.03 ng/mL (< 0.04) 02/21/18 08:27 B-Natriuretic Peptide 57 pg/mL (Less than 100) 02/21/18 08:27 Urine Color Yellow (Yellow) 02/21/18 09:36 Urine Clarity Clear (Clear) 02/21/18 09:36 Urine pH 5.5 pH Units (5.0-8.0) 02/21/18 09:36 Ur Specific [place] 1.025 (1.010-1.025) 02/21/18 09:36 Urine Protein Trace mg/dL (Neg-Trace) 02/21/18 09:36 Urine Glucose (UA) Normal mg/dL (Normal) 02/21/18 09:36 Urine Ketones Negative mg/dL (Negative) 02/21/18 09:36 Urine Blood Negative (Negative) 02/21/18 09:36 Urine Nitrite Negative (Negative) 02/21/18 09:36 Urine Bilirubin Negative (Negative) 02/21/18 09:36 Urine Urobilinogen Normal mg/dL (Normal) 02/21/18 09:36 Ur Leukocyte Esterase Negative (Negative) 02/21/18 09:36 Ur Culture Indicated? NO (NO) 02/21/18 09:36 Result diagrams: 02/21/18 08:27 02/21/18 08:27 Lab Results 02/21/18 02/21/18 02/21/18 Range/Units 08:27 08:27 08:27 WBC 14.1 H D (4.3-11.1) K/mcL RBC 4.73 (3.82-4.97) M/mcL Hgb 13.9 D (11.5-15.4) g/dL Hct 44.6 (35.3-44.9) % MCV 94.3 (83.0-100.0) fL MCH 29.4 (28.0-33.3) pg MCHC 31.2 L (31.6-35.5) g/dL RDW 14.3 (11.5-14.5) % Plt Count 241 (140-400) K/mcL MPV 10.6 (9.4-12.4) fL Immature Gran % 0.4 (0-4) % Seg Neutrophils % 87.0 % Lymphocytes % 8.6 % Monocytes % 3.4 % Eosinophils % 0.5 % Basophils % 0.1 % Neutrophils # 12.3 H (1.6-8.9) K/mcL Lymphocytes # 1.2 (0.6-4.6) K/mcL Monocytes # 0.5 (0.0-1.3) K/mcL Eosinophils # 0.1 (0.0-0.6) K/mcL Basophils # 0.0 (0.0-0.2) K/mcL PT 10.0 (9.4-12.1) Seconds INR 0.9 APTT 20.7 L (26.0-36.0) Seconds D-Dimer 2911 H (0-500) ng/mLFEU Sodium 139 (136-145) mEq/L Potassium 4.2 (3.5-5.1) mEq/L Chloride 104 (98-107) mEq/L Carbon Dioxide 25 (23-29) mEq/L BUN 19 (8-23) mg/dL Creatinine 0.61 (0.60-1.20) mg/dL Est GFR ( Amer) > 60 (> 60) Est GFR (Non-Af Amer) > 60 (> 60) BUN/Creatinine Ratio 31 H (6-26) Glucose 157 H (70-105) mg/dL Calculated Osmolality 294 (280-300) Lactic Acid (0.5-2.2) mmol/L Calcium 9.3 (8.6-10.3) mg/dL Troponin I < 0.03 (< 0.04) ng/mL B-Natriuretic Peptide (Less than 100) pg/mL Urine Color (Yellow) Urine Clarity (Clear) Urine pH (5.0-8.0) pH Units Ur Specific [place] (1.010-1.025) Urine Protein (Neg-Trace) mg/dL Urine Glucose (UA) (Normal) mg/dL Urine Ketones (Negative) mg/dL Urine Blood (Negative) Urine Nitrite (Negative) Urine Bilirubin (Negative) Urine Urobilinogen (Normal) mg/dL Ur Leukocyte Esterase (Negative) Ur Culture Indicated? (NO) 02/21/18 02/21/18 02/21/18 Range/Units 08:27 08:41 09:36 WBC (4.3-11.1) K/mcL RBC (3.82-4.97) M/mcL Hgb (11.5-15.4) g/dL Hct (35.3-44.9) % MCV (83.0-100.0) fL MCH (28.0-33.3) pg MCHC (31.6-35.5) g/dL RDW (11.5-14.5) % Plt Count (140-400) K/mcL MPV (9.4-12.4) fL Immature Gran % (0-4) % Seg Neutrophils % % Lymphocytes % % Monocytes % % Eosinophils % % Basophils % % Neutrophils # (1.6-8.9) K/mcL Lymphocytes # (0.6-4.6) K/mcL Monocytes # (0.0-1.3) K/mcL Eosinophils # (0.0-0.6) K/mcL Basophils # (0.0-0.2) K/mcL PT (9.4-12.1) Seconds INR APTT (26.0-36.0) Seconds D-Dimer (0-500) ng/mLFEU Sodium (136-145) mEq/L Potassium (3.5-5.1) mEq/L Chloride (98-107) mEq/L Carbon Dioxide (23-29) mEq/L BUN (8-23) mg/dL Creatinine (0.60-1.20) mg/dL Est GFR ( Amer) (> 60) Est GFR (Non-Af Amer) (> 60) BUN/Creatinine Ratio (6-26) Glucose (70-105) mg/dL Calculated Osmolality (280-300) Lactic Acid 2.9 H (0.5-2.2) mmol/L Calcium (8.6-10.3) mg/dL Troponin I (< 0.04) ng/mL B-Natriuretic Peptide 57 (Less than 100) pg/mL Urine Color Yellow (Yellow) Urine Clarity Clear (Clear) Urine pH 5.5 (5.0-8.0) pH Units Ur Specific [place] 1.025 (1.010-1.025) Urine Protein Trace (Neg-Trace) mg/dL Urine Glucose (UA) Normal (Normal) mg/dL Urine Ketones Negative (Negative) mg/dL Urine Blood Negative (Negative) Urine Nitrite Negative (Negative) Urine Bilirubin Negative (Negative) Urine Urobilinogen Normal (Normal) mg/dL Ur Leukocyte Esterase Negative (Negative) Ur Culture Indicated? NO (NO) 02/21/18 Range/Units 10:31 WBC (4.3-11.1) K/mcL RBC (3.82-4.97) M/mcL Hgb (11.5-15.4) g/dL Hct (35.3-44.9) % MCV (83.0-100.0) fL MCH (28.0-33.3) pg MCHC (31.6-35.5) g/dL RDW (11.5-14.5) % Plt Count (140-400) K/mcL MPV (9.4-12.4) fL Immature Gran % (0-4) % Seg Neutrophils % % Lymphocytes % % Monocytes % % Eosinophils % % Basophils % % Neutrophils # (1.6-8.9) K/mcL Lymphocytes # (0.6-4.6) K/mcL Monocytes # (0.0-1.3) K/mcL Eosinophils # (0.0-0.6) K/mcL Basophils # (0.0-0.2) K/mcL PT (9.4-12.1) Seconds INR APTT (26.0-36.0) Seconds D-Dimer (0-500) ng/mLFEU Sodium (136-145) mEq/L Potassium (3.5-5.1) mEq/L Chloride (98-107) mEq/L Carbon Dioxide (23-29) mEq/L BUN (8-23) mg/dL Creatinine (0.60-1.20) mg/dL Est GFR ( Amer) (> 60) Est GFR (Non-Af Amer) (> 60) BUN/Creatinine Ratio (6-26) Glucose (70-105) mg/dL Calculated Osmolality (280-300) Lactic Acid 2.5 H (0.5-2.2) mmol/L Calcium (8.6-10.3) mg/dL Troponin I (< 0.04) ng/mL B-Natriuretic Peptide (Less than 100) pg/mL Urine Color (Yellow) Urine Clarity (Clear) Urine pH (5.0-8.0) pH Units Ur Specific [place] (1.010-1.025) Urine Protein (Neg-Trace) mg/dL Urine Glucose (UA) (Normal) mg/dL Urine Ketones (Negative) mg/dL Urine Blood (Negative) Urine Nitrite (Negative) Urine Bilirubin (Negative) Urine Urobilinogen (Normal) mg/dL Ur Leukocyte Esterase (Negative) Ur Culture Indicated? (NO) - Radiology Data Radiology results reviewed: Yes I reviewed the patient's radiology results. Chest X-Ray 02/21/18 08:27 IMPRESSION: 1. [id number] congestive heart failure. D/ / 02/21/2018 09:04:05 Lyndsay Castillo MD / [email or web address] Interpreting Provider: Lyndsay Castillo MD Chest CTA 02/21/18 09:11 IMPRESSION: No evidence of pulmonary embolism. Moderate patchy bilateral upper and lower lobe airspace disease, greater on the left. These changes may represent a multifocal pneumonia versus inflammatory process. Fatty infiltration within the liver. D/ / 02/21/2018 10:27:19 Kenn Maza MD / [facility] Interpreting Provider: Kenn Maza MD - EKG Data EKG attestation: Yes I reviewed and interpreted this EKG. EKG results narrative: EKG reviewed by Dr. Simental as well. EKG shows a sinus tachycardia with occasional ventricular premature complexes at a rate of 108 bpm. MI interval 128, QRS duration 93, QT/QTc interval 311/375. No ST elevation noted. No significant changes when compared to an EKG dated from 01/13/18.
[2018-02-21] MEDS ORDERED: Ipratropium/Albuterol Neb 3 ML IH ONE (08:42)
[2018-02-21] MEDS ORDERED: methylPREDNISolone 125 MG/2 ML VIAL IVP ONE (08:42)
[2018-02-21 08:56] LABS: Basophils % 0.1 %; Eosinophils # 0.1 K/mcL (0.0-0.6); Eosinophils % 0.5 %; Hematocrit 44.6 % (35.3-44.9); Hemoglobin 13.9 g/dL (11.5-15.4); Immature Granulocytes % 0.4 % (0-4); Lymphocytes # 1.2 K/mcL (0.6-4.6); Lymphocytes % 8.6 %; Mean Corpuscular HGB Conc 31.2 g/dL (31.6-35.5); Mean Corpuscular Hemoglobin 29.4 pg (28.0-33.3); Mean Corpuscular Volume 94.3 fL (83.0-100.0); Mean Platelet Volume 10.6 fL (9.4-12.4); Monocytes # 0.5 K/mcL (0.0-1.3); Monocytes % 3.4 %; Platelet Count 241 K/mcL (140-400); Red Blood Count 4.73 M/mcL (3.82-4.97); Red Cell Distribution Width 14.3 % (11.5-14.5)
[2018-02-21 09:00] LABS: Neutrophils # 12.3 K/mcL (1.6-8.9)
[2018-02-21 09:08] LABS: INR 0.9
[2018-02-21] MEDS ORDERED: Isovue-370 500 ML INFUS..BTL IV ONE (09:11)
[2018-02-21 09:12] LABS: Activated Partial Thrombo Time 20.7 Seconds (26.0-36.0)
[2018-02-21 09:26] LABS: BUN/Creatinine Ratio 31 (6-26); Blood Urea Nitrogen 19 mg/dL (8-23); Calcium 9.3 mg/dL (8.6-10.3); Carbon Dioxide 25 mEq/L (23-29); Chloride 104 mEq/L (98-107); Glucose 157 mg/dL (70-105); Osmolality,Calculated 294 (280-300); Potassium 4.2 mEq/L (3.5-5.1); Sodium 139 mEq/L (136-145); eGFR For African Americans > 60 (> 60); eGFR For Non-African Americans > 60 (> 60)
[2018-02-21 09:27] LABS: Troponin I < 0.03 ng/mL (< 0.04)
[2018-02-21 10:10] LABS: Bilirubin,Urine Negative (Negative); Blood,Urine Negative (Negative); Clarity,Urine Clear (Clear); Color,Urine Yellow (Yellow); Glucose,Urine (UA) Normal (Normal); Ketones,Urine Negative (Negative); Leukocyte Esterase,Urine Negative (Negative); Nitrite,Urine Negative (Negative); PH,Urine 5.5 pH Units (5.0-8.0); Protein,Urine Trace mg/dL (Neg-Trace); Specific Gravity,Urine 1.025 (1.010-1.025); Urobilinogen,Urine Normal (Normal)
[2018-02-21] MEDS ORDERED: 0.9 % Sodium Chloride 1,000 ML IVC ONE (10:29)
[2018-02-21] MEDS ORDERED: Levofloxacin 750 MG/150 ML 750 MG/150 ML BAG IVPB ONE (10:30)
[2018-02-21] MEDS ORDERED: *HR* HYDROcodone/Acet 5/325 mg TABLET PO PRN (11:02)
[2018-02-21] MEDS ORDERED: *HR* Promethazine 25 MG/ML VIAL IVP PRN (11:02)
[2018-02-21] MEDS ORDERED: Naloxone 0.4 MG/ML INJ IVP PRN (11:02)
[2018-02-21] MEDS ORDERED: Acetaminophen 325 MG TABLET PO PRN (11:02)
[2018-02-21] MEDS ORDERED: Ondansetron 4 MG/2 ML VIAL IVP PRN (11:02)
--- NOTE | 2018-02-21 11:35 | Internal Med History&Physical ---
Date of Encounter: 02/21/18 Time of Encounter: 11:00 Internal Medicine - H&P: HPI Chief complaint: Shortness of breath Admitted From: Emergency Dept Plans for Post Hospital Care: Home History of present illness: Ms. Brown is a 62 year old female with known PMH of HTN, HLD, Morbid obesity , RHONA, Asthma and Chronic diastolic CHF pt who has been having shortness of breath and bronchitis symptoms for last 2-3 weeks, now she presented to ER with worsening SOB, Wheezing, Resp distress and cough with yellowish expectoration from last 2-3 days. However last night she did notice some blood in her sputum too. She denied any CP. However she had some intermittent CP before for which she had seen Dialysis Registered Nurse as an out pt who scheduled her for out pt elective LHC on Saturday. She denied of any sick contacts at home Past Med Surg Social Fam HX - Past Medical History Medical history: GERD, hyperlipidemia, hypertension Additional medical history: sleep apena Psychiatric history: anxiety - Past Surgical History Surgical History: cataract, hysterectomy, knee replacement Additional surgical history: heart cath, right and left knee replacement, bladder suspension, breast bx - Social History Smoking Status: Former smoker Smokeless Tobacco Status: No Alcohol use: none Drug use: none - Family History Father Living Status: Hx Family Cardiac Disorders: Yes Hx Family Respiratory Disorders: No Hx Family Cancer: No Hx Family GI Disorders: No Hx Family Endocrine Disorder: No Hx Family Neuromuscular Disorders: No Hx Family Neurologic Disorders: No Hx Family HEENT Disorders: No Hx Family Autoimmune Disorders: No Brother Hx Family Cardiac Disorders: Yes (CABG 50s) Mother Living Status: Hx Family Cardiac Disorders: Yes (unknown) Hx Family Respiratory Disorders: No Hx Family Cancer: No Hx Family GI Disorders: No Hx Family Endocrine Disorder: No Hx Family Neuromuscular Disorders: No Hx Family Neurologic Disorders: No Hx Family HEENT Disorders: No Hx Family Autoimmune Disorders: No - Additional Family History Additional family history: Significant family history for CAD Internal Medicine - H&P: Meds Aspirin 81 mg PO QAM 12/07/15 [History] DiphenhydraMINE [Benadryl] 50 mg PO HS 12/07/15 [History] Pantoprazole Sodium [Protonix] 40 mg PO BID 12/07/15 [History] Albuterol Sulfate [Ventolin Hfa] 2 puff IH Q4-6H #1 [email or web address] 01/19/17 [Rx] Fluticasone/Salmeterol [Advair 100-50 Diskus] 1 puff IH BID 11/15/17 [History] Ibuprofen 800 mg PO BID PRN 11/15/17 [History] Venlafaxine [Effexor] 37.5 mg PO BID 11/15/17 [History] Metoprolol [Lopressor] 25 mg PO BID 02/21/18 [History] Simvastatin [Zocor] 20 mg PO HS 02/21/18 [History] 3 Allergy/AdvReac Type Severity Reaction Status Date / Time Sulfa (Sulfonamide AdvReac See Verified 12/03/17 09:19 Antibiotics) Comments All Systems PM: A 10-system review of systems was performed and is negative for pertinent findings except as documented above in the HPI. Review of systems: All the systems are reviewed everything is benign except the systems and symptoms I mentioned in the history of present illness - Constitutional Vitals: Temp Pulse Resp BP Pulse Ox 100.6 F H 107 21 137/70 95 02/21/18 08:23 02/21/18 10:24 02/21/18 10:24 02/21/18 10:24 02/21/18 10:24 General appearance: Present: cooperative, mild distress, A&O X 3, answers questions appropriately - Head Head exam: Present: atraumatic, normal inspection - Neck Neck exam general surgery: Present: supple - Respiratory Respiratory exam: Absent: respiratory distress, rhonchi, wheezes - Cardiovascular Cardiovascular exam: Present: +S1, +S2, tachycardia - GI/Abdominal GI/Abdominal exam: Present: normal bowel sounds, soft. Absent: rebound, rigid, tenderness - Extremities Exam Extremities exam: Absent: calf tenderness, pedal edema, tenderness - Back Exam Back exam: Absent: CVA tenderness (L), CVA tenderness (R) - Neurological Exam Neurological exam: Present: alert, oriented X3 - Psychiatric Psychiatric exam: Present: anxious Internal Med - H&P Results - Labs CBC & Chem 7: 02/21/18 08:27 02/21/18 08:27 Labs: Short CBC 02/21/18 Range/Units 08:27 WBC 14.1 H D (4.3-11.1) K/mcL Hgb 13.9 D (11.5-15.4) g/dL Hct 44.6 (35.3-44.9) % Plt Count 241 (140-400) K/mcL Neutrophils # 12.3 H (1.6-8.9) K/mcL BMP 02/21/18 08:27 Sodium 139 Potassium 4.2 Chloride 104 Carbon Dioxide 25 BUN 19 Creatinine 0.61 Glucose 157 H Calcium 9.3 Cardiac Enzymes 02/21/18 Range/Units 08:27 Troponin I < 0.03 (< 0.04) ng/mL Urine 02/21/18 Range/Units 09:36 Urine Color Yellow (Yellow) Urine Clarity Clear (Clear) Urine pH 5.5 (5.0-8.0) pH Units Ur Specific [place] 1.025 (1.010-1.025) Urine Protein Trace (Neg-Trace) mg/dL Urine Glucose (UA) Normal (Normal) mg/dL - Impressions ITS Impressions Chest X-Ray 02/21/18 08:27 IMPRESSION: 1. [id number] congestive heart failure. D/ / 02/21/2018 09:04:05 Lyndsay Castillo MD / [facility] Interpreting Provider: Lyndsay Castillo MD Chest CTA 02/21/18 09:11 IMPRESSION: No evidence of pulmonary embolism. Moderate patchy bilateral upper and lower lobe airspace disease, greater on the left. These changes may represent a multifocal pneumonia versus inflammatory process. Fatty infiltration within the liver. D/ / 02/21/2018 10:27:19 Kenn Maza MD / [facility] Interpreting Provider: Kenn Maza MD - Assessment and plan (1) Sepsis Current Visit: Yes Status: Acute Assessment and plan: Admit the patient into Tele Patient does meet sepsis criteria with elevated WBC, sinus tachycardia and source of infection as pneumonitis blood cultures drawn in the ER I would check strep pneumonia, Legionella, sputum culture, Gram stain and respiratory viral panel started on empirical antibiotic with Levaquin Qualifiers: Sepsis type: sepsis due to unspecified organism Qualified Code(s): A41.9 - Sepsis, unspecified organism (2) Multifocal pneumonia Current Visit: Yes Status: Acute Assessment and plan: Mostly bacterial started on empirical antibiotic Levaquin (3) Asthma exacerbation Current Visit: Yes Status: Acute Assessment and plan: Started her on high-dose IV steroids with Solu-Medrol 40 mg IV Q6 hrly duoneb q4 hour as scheduled oxygen as needed also resumed home inhaler steroids Qualifiers: Asthma severity: moderate Asthma persistence: unspecified Qualified Code( s): J45.901 - Unspecified asthma with (acute) exacerbation (4) Acute respiratory failure with hypoxia Current Visit: Yes Status: Acute Assessment and plan: Due to pneumonitis patient does have hypoventilation syndrome too along with sleep apnea she may need home O2 eval as well as overnight pulse oxy study before she goes home (5) Chronic diastolic (congestive) heart failure Current Visit: Yes Status: Acute Assessment and plan: Reviewed her Echo from January 2018 showed preserved LVEF and mild diastolic heart failure she is not in exacerbation now no need of diuretics resumed aspirin and beta jayden supposedly patient has to go for out patient elective left heart catheterization on this Saturday by Dr. Cristobal I did page PESTIC[employer] APPLICATOR to look into this (6) DVT prophylaxis Current Visit: No Status: Acute Assessment and plan: On Lovenox (7) Anxiety Current Visit: No Status: Chronic Assessment and plan: Resumed home medications (8) HTN (hypertension) Current Visit: No Status: Chronic Assessment and plan: Stable resumed home medications Qualifiers: Hypertension type: essential hypertension Qualified Code(s): I10 - Essential (primary) hypertension (9) Hyperlipemia Current Visit: No Status: Chronic Assessment and plan: Will check FLP in AM Qualifiers: Hyperlipidemia type: unspecified Qualified Code(s): E78.5 - Hyperlipidemia , unspecified (10) Morbid obesity Current Visit: No Status: Chronic Assessment and plan: Counseled to loose weight - Time Spent With Patient Total time spent is greater than 50% in coordination of care (as documented) at patient's floor/unit and/or counseling patient:
[2018-02-21] MEDS: MethylPREDNISolone 40 MG/ML VIAL IVP SCH ×3 (13:40→23:21)
[2018-02-21] MEDS: 0.9 % Sodium Chloride 1,000 ML IVC SCH ×2 (14:44→23:20)
[2018-02-21] MEDS: *HR* OxyCODONE Immed Rel 5 MG TABLET PO PRN ×2 (15:45→21:40)
[2018-02-21] MEDS: Ipratropium/Albuterol Neb 3 ML IH SCH ×4 (15:51→23:57)
--- NOTE | 2018-02-21 17:59 | Electrocardiograph Report ---
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
[2018-02-21] MEDS: Budesonide/Formoterol 80/4.5 MDI IH SCH (19:49)
[2018-02-22] MEDS: Ipratropium/Albuterol Neb 3 ML IH SCH ×6 (03:54→23:44)
[2018-02-22] MEDS: MethylPREDNISolone 40 MG/ML VIAL IVP SCH (05:23)
[2018-02-22] MEDS: *HR* Enoxaparin 40 MG/0.4 ML SYRINGE SQ SCH (05:23)
[2018-02-22 05:32] LABS: Basophils % 0.1 %; Hematocrit 36.3 % (35.3-44.9); Immature Granulocytes % 0.7 % (0-4); Lymphocytes # 1.2 K/mcL (0.6-4.6); Lymphocytes % 5.4 %; Mean Corpuscular HGB Conc 31.4 g/dL (31.6-35.5); Mean Corpuscular Hemoglobin 29.5 pg (28.0-33.3); Mean Platelet Volume 10.7 fL (9.4-12.4); Monocytes # 0.6 K/mcL (0.0-1.3); Monocytes % 2.7 %; Platelet Count 237 K/mcL (140-400); Red Blood Count 3.86 M/mcL (3.82-4.97); Red Cell Distribution Width 14.7 % (11.5-14.5); Segmented Neutrophils % 91.1 %
[2018-02-22 05:34] LABS: Hemoglobin 11.4 g/dL (11.5-15.4); Neutrophils # 19.9 K/mcL (1.6-8.9)
[2018-02-22 05:52] LABS: BUN/Creatinine Ratio 33 (6-26); Blood Urea Nitrogen 21 mg/dL (8-23); Calcium 8.7 mg/dL (8.6-10.3); Carbon Dioxide 24 mEq/L (23-29); Chloride 105 mEq/L (98-107); Chol/HDL Ratio 2.8 (0-4.9); Cholesterol 149 mg/dL (< 200); Glucose 217 mg/dL (70-105); HDL Cholesterol 54 mg/dL (40-59); LDL Cholesterol,Calculated 79 mg/dL (0-99); Magnesium 1.7 mg/dL (1.6-2.6); Osmolality,Calculated 294 (280-300); Potassium 3.9 mEq/L (3.5-5.1); Sodium 137 mEq/L (136-145); Triglycerides 81 mg/dL (< 150); eGFR For African Americans > 60 (> 60); eGFR For Non-African Americans > 60 (> 60)
[2018-02-22] MEDS: Aspirin 81 MG TAB.CHEW PO SCH (08:17)
[2018-02-22] MEDS: Budesonide/Formoterol 80/4.5 MDI IH SCH ×2 (08:43→19:56)
[2018-02-22] MEDS ORDERED: Levofloxacin 750 MG/150 ML 750 MG/150 ML BAG IVPB SCH (09:00)
--- NOTE | 2018-02-22 09:36 | Internal Med Progress Note ---
Date of Encounter: 02/22/18 Time of Encounter: 09:30 - Assessment and plan (1) Acute respiratory failure with hypoxia Current Visit: Yes Status: Acute Assessment and plan: Due to multifocal pneumonia and asthma. continue antibiotics. Continue nebs and steroids patient does have hypoventilation syndrome too along with sleep apnea. Scheduled for outpatient sleep study (2) Sepsis Current Visit: Yes Status: Acute Assessment and plan: Patient does meet sepsis criteria with elevated WBC, sinus tachycardia and source of infection as pneumonitis. Continue zosyn. follow up blood cultures. Urine legionella antigen positive for strep pneumo Qualifiers: Sepsis type: sepsis due to unspecified organism Qualified Code(s): A41.9 - Sepsis, unspecified organism (3) Multifocal pneumonia Current Visit: Yes Status: Acute Assessment and plan: CXR shows evidence of multifocal pneumonia. Continue zosyn (4) Morbid obesity Current Visit: No Status: Chronic Assessment and plan: Counseled to lose weight. Diet and exercise (5) HTN (hypertension) Current Visit: No Status: Chronic Assessment and plan: Stable resumed home medications Qualifiers: Hypertension type: essential hypertension Qualified Code(s): I10 - Essential (primary) hypertension (6) Anxiety Current Visit: No Status: Chronic Assessment and plan: Resumed home medications (7) DVT prophylaxis Current Visit: No Status: Acute Assessment and plan: On Lovenox (8) Asthma exacerbation Current Visit: Yes Status: Acute Assessment and plan: Started her on high-dose IV steroids with Solu-Medrol 40 mg IV Q6 hrly duoneb q4 hour as scheduled oxygen as needed also resumed home inhaler steroids Qualifiers: Asthma severity: moderate Asthma persistence: unspecified Qualified Code( s): J45.901 - Unspecified asthma with (acute) exacerbation (9) Chronic diastolic (congestive) heart failure Current Visit: Yes Status: Acute Assessment and plan: Reviewed her Echo from January 2018 showed preserved LVEF and mild diastolic heart failure she is not in exacerbation now no need of diuretics resumed aspirin and beta jayden supposedly patient has to go for out patient elective left heart catheterization on this Saturday by Dr. Cristobal. Cardiac cath will be postponed until patient recovers from pneumonia - Time Spent With Patient Total time spent is greater than 50% in coordination of care (as documented) at patient's floor/unit and/or counseling patient: - Subjective Interval history: No acute events overnight - Constitutional Vitals: Temp Pulse Resp BP Pulse Ox 98.1 F 104 18 104/69 93 02/22/18 07:46 02/22/18 07:46 02/22/18 08:44 02/22/18 07:46 02/22/18 08:44 General appearance: Present: cooperative, mild distress, A&O X 3, answers questions appropriately - Head Head exam: Present: atraumatic, normocephalic - Eye Eye exam: Present: PERRL, conjuntiva pink, sclera anicteric Pupils: Present: PERRL - Neck Neck exam general surgery: Present: supple, trachea midline. Absent: lymphadenopathy - Respiratory Respiratory exam: Present: CTAB. Absent: accessory muscle use, rales, rhonchi, wheezes - Cardiovascular Cardiovascular exam: Present: RRR, +S1, +S2. Absent: diastolic murmur, gallop, rubs, systolic murmur - GI/Abdominal GI/Abdominal exam: Present: normal bowel sounds, soft, no peritoneal signs. Absent: distended, tenderness - Extremities Exam Extremities exam: Present: warm, radial pulses palpable and symmetrical. Absent : calf tenderness, cyanotic, pedal edema - Neurological Exam Neurological exam: Present: CN II-XII intact, oriented X3, no focal deficits. Absent: pronater drift, facial droop, speech deficit - Skin Skin exam: Present: dry, intact Internal Medicine: Result - Labs CBC & Chem 7: 02/22/18 05:00 02/22/18 05:00 Labs: Short CBC 02/22/18 Range/Units 05:00 WBC 21.8 H D (4.3-11.1) K/mcL Hgb 11.4 L D (11.5-15.4) g/dL Hct 36.3 (35.3-44.9) % Plt Count 237 (140-400) K/mcL Neutrophils # 19.9 H (1.6-8.9) K/mcL BMP 02/22/18 05:00 Sodium 137 Potassium 3.9 Chloride 105 Carbon Dioxide 24 BUN 21 Creatinine 0.63 Glucose 217 H Calcium 8.7 - ABG Interpretation ABG results: PT/INR, D-dimer PT 10.0 Seconds (9.4-12.1) 02/21/18 08:27 D-Dimer 2911 ng/mLFEU (0-500) H 02/21/18 08:27 Consult Discharge Plan - Plan Referrals: Ely Devine DO [Primary Care Provider] -
[2018-02-22] MEDS: Piperacillin/Tazobactam 3.375 GM in 0.9 % Sodium Chloride Mini Bag 100 ML IVPB SCH ×2 (11:49→17:22)
[2018-02-22] MEDS: methylPREDNISolone 125 MG/2 ML VIAL IVP SCH (15:42)
[2018-02-23] MEDS: methylPREDNISolone 125 MG/2 ML VIAL IVP SCH ×3 (00:13→16:04)
[2018-02-23] MEDS: Piperacillin/Tazobactam 3.375 GM in 0.9 % Sodium Chloride Mini Bag 100 ML IVPB SCH ×3 (00:30→16:12)
[2018-02-23] MEDS: Ipratropium/Albuterol Neb 3 ML IH SCH ×5 (04:06→20:42)
[2018-02-23 04:37] LABS: Basophils # 0.1 K/mcL (0.0-0.2); Basophils % 0.3 %; Hematocrit 37.7 % (35.3-44.9); Hemoglobin 11.9 g/dL (11.5-15.4); Immature Granulocytes % 3.3 % (0-4); Lymphocytes # 1.1 K/mcL (0.6-4.6); Lymphocytes % 5.1 %; Mean Corpuscular HGB Conc 31.6 g/dL (31.6-35.5); Mean Corpuscular Hemoglobin 29.7 pg (28.0-33.3); Mean Platelet Volume 10.5 fL (9.4-12.4); Monocytes # 1.1 K/mcL (0.0-1.3); Monocytes % 5.1 %; Neutrophils # 17.7 K/mcL (1.6-8.9); Platelet Count 257 K/mcL (140-400); Red Blood Count 4.01 M/mcL (3.82-4.97); Red Cell Distribution Width 15.1 % (11.5-14.5); Segmented Neutrophils % 86.2 %
[2018-02-23 04:56] LABS: BUN/Creatinine Ratio 38 (6-26); Blood Urea Nitrogen 23 mg/dL (8-23); Carbon Dioxide 24 mEq/L (23-29); Chloride 108 mEq/L (98-107); Glucose 198 mg/dL (70-105); Osmolality,Calculated 299 (280-300); Potassium 4.6 mEq/L (3.5-5.1); Sodium 140 mEq/L (136-145); eGFR For African Americans > 60 (> 60); eGFR For Non-African Americans > 60 (> 60)
[2018-02-23] MEDS: *HR* Enoxaparin 40 MG/0.4 ML SYRINGE SQ SCH (05:16)
[2018-02-23] MEDS: Aspirin 81 MG TAB.CHEW PO SCH (08:18)
--- NOTE | 2018-02-23 08:48 | Internal Med Progress Note ---
Date of Encounter: 02/23/18 Time of Encounter: 08:40 - Assessment and plan (1) Acute respiratory failure with hypoxia Current Visit: Yes Status: Acute Assessment and plan: Due to multifocal pneumonia and asthma. continue antibiotics. Continue nebs and steroids patient does have hypoventilation syndrome too along with sleep apnea. Scheduled for outpatient sleep study (2) Sepsis Current Visit: Yes Status: Acute Assessment and plan: Patient meets sepsis criteria with elevated WBC, sinus tachycardia and source of infection as multifocal pneumonia. Continue zosyn. follow up blood cultures. Urine legionella antigen positive for strep pneumo Qualifiers: Sepsis type: Streptococcus, unspecified Qualified Code(s): A40.9 - Streptococcal sepsis, unspecified; A40 - Streptococcal sepsis (3) Multifocal pneumonia Current Visit: Yes Status: Acute Assessment and plan: CXR shows evidence of multifocal pneumonia. Continue zosyn (4) Morbid obesity Current Visit: No Status: Chronic Assessment and plan: Counseled to lose weight. Diet and exercise (5) HTN (hypertension) Current Visit: No Status: Chronic Assessment and plan: Stable resumed home medications Qualifiers: Hypertension type: essential hypertension Qualified Code(s): I10 - Essential (primary) hypertension (6) Anxiety Current Visit: No Status: Chronic Assessment and plan: Resumed home medications (7) DVT prophylaxis Current Visit: No Status: Acute Assessment and plan: On Lovenox (8) Asthma exacerbation Current Visit: Yes Status: Acute Assessment and plan: Asthma/ COPD exacerbation Started her on high-dose IV steroids with Solu-Medrol 60mg IV Q8 hrly duoneb q4 hour as scheduled oxygen as needed also resumed home inhaler steroids. will taper to po steroids as tolerated Qualifiers: Asthma severity: moderate Asthma persistence: unspecified Qualified Code( s): J45.901 - Unspecified asthma with (acute) exacerbation (9) Chronic diastolic (congestive) heart failure Current Visit: Yes Status: Acute Assessment and plan: Reviewed her Echo from January 2018 showed preserved LVEF and mild diastolic heart failure she is not in exacerbation now no need of diuretics resumed aspirin and beta jayden supposedly patient has to go for out patient elective left heart catheterization on this Saturday by Dr. Cristobal. Cardiac cath will be postponed until patient recovers from pneumonia - Time Spent With Patient Total time spent is greater than 50% in coordination of care (as documented) at patient's floor/unit and/or counseling patient: - Subjective Interval history: No acute events overnight - Constitutional Vitals: Temp Pulse Resp BP Pulse Ox 98.1 F 104 17 131/70 93 02/23/18 07:17 02/23/18 07:17 02/23/18 07:17 02/23/18 07:17 02/23/18 07:17 General appearance: Present: cooperative, mild distress, A&O X 3, answers questions appropriately - Head Head exam: Present: atraumatic, normocephalic - Eye Eye exam: Present: PERRL, conjuntiva pink, sclera anicteric Pupils: Present: PERRL - Neck Neck exam general surgery: Present: supple, trachea midline. Absent: lymphadenopathy - Respiratory Respiratory exam: Present: CTAB. Absent: accessory muscle use, rales, rhonchi, wheezes - Cardiovascular Cardiovascular exam: Present: RRR, +S1, +S2. Absent: diastolic murmur, gallop, rubs, systolic murmur - GI/Abdominal GI/Abdominal exam: Present: normal bowel sounds, soft, no peritoneal signs. Absent: distended, tenderness - Extremities Exam Extremities exam: Present: warm, radial pulses palpable and symmetrical. Absent : calf tenderness, cyanotic, pedal edema - Neurological Exam Neurological exam: Present: CN II-XII intact, oriented X3, no focal deficits. Absent: pronater drift, facial droop, speech deficit - Skin Skin exam: Present: dry, intact Internal Medicine: Result - Labs CBC & Chem 7: 02/23/18 03:33 02/23/18 03:33 Labs: Short CBC 02/23/18 Range/Units 03:33 WBC 20.6 H (4.3-11.1) K/mcL Hgb 11.9 (11.5-15.4) g/dL Hct 37.7 (35.3-44.9) % Plt Count 257 (140-400) K/mcL Neutrophils # 17.7 H (1.6-8.9) K/mcL BMP 02/23/18 03:33 Sodium 140 Potassium 4.6 Chloride 108 H Carbon Dioxide 24 BUN 23 Creatinine 0.60 Glucose 198 H Calcium 9.0 - ABG Interpretation ABG results: PT/INR, D-dimer PT 10.0 Seconds (9.4-12.1) 02/21/18 08:27 D-Dimer 2911 ng/mLFEU (0-500) H 02/21/18 08:27 Consult Discharge Plan - Plan Referrals: Ely Devine DO [Primary Care Provider] -
[2018-02-23] MEDS: Budesonide/Formoterol 80/4.5 MDI IH SCH ×2 (08:57→20:42)
[2018-02-24] MEDS: Ipratropium/Albuterol Neb 3 ML IH SCH ×7 (00:13→23:14)
[2018-02-24] MEDS: methylPREDNISolone 125 MG/2 ML VIAL IVP SCH ×2 (00:49→11:30)
[2018-02-24] MEDS: Piperacillin/Tazobactam 3.375 GM in 0.9 % Sodium Chloride Mini Bag 100 ML IVPB SCH ×3 (00:50→17:55)
[2018-02-24 04:00] LABS: Hematocrit 36.7 % (35.3-44.9); Hemoglobin 11.4 g/dL (11.5-15.4); Mean Corpuscular HGB Conc 31.1 g/dL (31.6-35.5); Mean Corpuscular Hemoglobin 29.2 pg (28.0-33.3); Mean Corpuscular Volume 93.9 fL (83.0-100.0); Mean Platelet Volume 10.3 fL (9.4-12.4); Nucleated Red Blood Cells 0.1 /100 WBC (0); Platelet Count 260 K/mcL (140-400); Red Blood Count 3.91 M/mcL (3.82-4.97); Red Cell Distribution Width 15.2 % (11.5-14.5)
[2018-02-24 04:23] LABS: Lymphocytes # 2.5 K/mcL (0.6-4.6); Monocytes # 2.1 K/mcL (0.0-1.3); Neutrophils # 15.2 K/mcL (1.6-8.9)
[2018-02-24 04:24] LABS: Platelet Estimate Normal (Normal); Toxic Granulation Present (Not Present)
[2018-02-24 04:28] LABS: BUN/Creatinine Ratio 39 (6-26); Blood Urea Nitrogen 23 mg/dL (8-23); Calcium 9.1 mg/dL (8.6-10.3); Carbon Dioxide 27 mEq/L (23-29); Chloride 106 mEq/L (98-107); Glucose 241 mg/dL (70-105); Osmolality,Calculated 302 (280-300); Potassium 4.1 mEq/L (3.5-5.1); Sodium 140 mEq/L (136-145); eGFR For African Americans > 60 (> 60); eGFR For Non-African Americans > 60 (> 60)
[2018-02-24] MEDS: *HR* Enoxaparin 40 MG/0.4 ML SYRINGE SQ SCH (05:26)
--- NOTE | 2018-02-24 08:13 | Internal Med Progress Note ---
Date of Encounter: 02/24/18 Time of Encounter: 08:00 - Assessment and plan (1) Acute respiratory failure with hypoxia Current Visit: Yes Status: Acute Assessment and plan: Due to multifocal pneumonia and asthma/ COPD. continue antibiotics. Continue nebs and steroids patient has hypoventilation syndrome too along with sleep apnea. Scheduled for outpatient sleep study for qualification for CPAP (2) Sepsis Current Visit: Yes Status: Acute Assessment and plan: Patient meets sepsis criteria with elevated WBC, sinus tachycardia and source of infection as multifocal pneumonia. Continue zosyn. follow up blood cultures. Urine legionella antigen positive for strep pneumo Qualifiers: Sepsis type: Streptococcus, unspecified Qualified Code(s): A40.9 - Streptococcal sepsis, unspecified; A40 - Streptococcal sepsis (3) Asthma exacerbation Current Visit: Yes Status: Acute Assessment and plan: Asthma/ COPD exacerbation Started her on high-dose IV steroids with Solu-Medrol 60mg IV Q8 hrly duoneb q4 hour as scheduled oxygen as needed also resumed home inhaler steroids. 02/24 Pt still has mild wheezes and SOB. Breathing improved overall. Will taper to high dose steroids to 40mg Iv q 12 today. Wean steroids to po as tolerated Qualifiers: Asthma severity: moderate Asthma persistence: unspecified Qualified Code( s): J45.901 - Unspecified asthma with (acute) exacerbation (4) Multifocal pneumonia Current Visit: Yes Status: Acute Assessment and plan: CXR shows evidence of multifocal pneumonia. Continue zosyn (5) Morbid obesity Current Visit: No Status: Chronic Assessment and plan: Counseled to lose weight. Diet and exercise (6) HTN (hypertension) Current Visit: No Status: Chronic Assessment and plan: Stable resumed home medications Qualifiers: Hypertension type: essential hypertension Qualified Code(s): I10 - Essential (primary) hypertension (7) Anxiety Current Visit: No Status: Chronic Assessment and plan: Resumed home medications (8) DVT prophylaxis Current Visit: No Status: Acute Assessment and plan: On Lovenox (9) Chronic diastolic (congestive) heart failure Current Visit: Yes Status: Acute Assessment and plan: Reviewed her Echo from January 2018 showed preserved LVEF and mild diastolic heart failure she is not in exacerbation now no need of diuretics resumed aspirin and beta jayden supposedly patient has to go for out patient elective left heart catheterization on this Saturday by Dr. Cristobal. Cardiac cath will be postponed until patient recovers from pneumonia - Time Spent With Patient Total time spent is greater than 50% in coordination of care (as documented) at patient's floor/unit and/or counseling patient: - Subjective Interval history: No acute events overnight - Constitutional Vitals: Temp Pulse Resp BP Pulse Ox 97.9 F 94 20 166/85 95 02/24/18 03:20 02/24/18 03:20 02/24/18 03:47 02/24/18 03:20 02/24/18 03:47 General appearance: Present: cooperative, mild distress, A&O X 3, answers questions appropriately - Head Head exam: Present: atraumatic, normocephalic - Eye Eye exam: Present: PERRL, conjuntiva pink, sclera anicteric Pupils: Present: PERRL - Neck Neck exam general surgery: Present: supple, trachea midline. Absent: lymphadenopathy - Respiratory Respiratory exam: Present: CTAB. Absent: accessory muscle use, rales, rhonchi, wheezes - Cardiovascular Cardiovascular exam: Present: RRR, +S1, +S2. Absent: diastolic murmur, gallop, rubs, systolic murmur - GI/Abdominal GI/Abdominal exam: Present: normal bowel sounds, soft, no peritoneal signs. Absent: distended, tenderness - Extremities Exam Extremities exam: Present: warm, radial pulses palpable and symmetrical. Absent : calf tenderness, cyanotic, pedal edema - Neurological Exam Neurological exam: Present: CN II-XII intact, oriented X3, no focal deficits. Absent: pronater drift, facial droop, speech deficit - Skin Skin exam: Present: dry, intact Internal Medicine: Result - Labs CBC & Chem 7: 02/24/18 03:35 02/24/18 03:35 Labs: Short CBC 02/24/18 Range/Units 03:35 WBC 20.5 H (4.3-11.1) K/mcL Hgb 11.4 L (11.5-15.4) g/dL Hct 36.7 (35.3-44.9) % Plt Count 260 (140-400) K/mcL Neutrophils # 15.2 H (1.6-8.9) K/mcL BMP 02/24/18 03:35 Sodium 140 Potassium 4.1 Chloride 106 Carbon Dioxide 27 BUN 23 Creatinine 0.59 L Glucose 241 H Calcium 9.1 - ABG Interpretation ABG results: PT/INR, D-dimer PT 10.0 Seconds (9.4-12.1) 02/21/18 08:27 D-Dimer 2911 ng/mLFEU (0-500) H 02/21/18 08:27 Consult Discharge Plan - Plan Referrals: Ely Devine DO [Primary Care Provider] - 03/03/18 9:30 am ()
[2018-02-24] MEDS: Aspirin 81 MG TAB.CHEW PO SCH (10:27)
[2018-02-24] MEDS: Budesonide/Formoterol 80/4.5 MDI IH SCH ×2 (11:33→19:40)
[2018-02-24] MEDS: MethylPREDNISolone 40 MG/ML VIAL IVP SCH (17:56)
[2018-02-25] MEDS: Piperacillin/Tazobactam 3.375 GM in 0.9 % Sodium Chloride Mini Bag 100 ML IVPB SCH (02:07)
[2018-02-25] MEDS: Ipratropium/Albuterol Neb 3 ML IH SCH ×5 (03:51→19:58)
[2018-02-25] MEDS: *HR* Enoxaparin 40 MG/0.4 ML SYRINGE SQ SCH (04:57)
[2018-02-25] MEDS: MethylPREDNISolone 40 MG/ML VIAL IVP SCH ×2 (04:57→18:25)
[2018-02-25 06:39] LABS: Hematocrit 38.1 % (35.3-44.9); Hemoglobin 12.3 g/dL (11.5-15.4); Mean Corpuscular HGB Conc 32.3 g/dL (31.6-35.5); Mean Corpuscular Hemoglobin 30.1 pg (28.0-33.3); Mean Corpuscular Volume 93.2 fL (83.0-100.0); Mean Platelet Volume 10.8 fL (9.4-12.4); Nucleated Red Blood Cells 0.2 /100 WBC (0); Platelet Count 260 K/mcL (140-400); Red Blood Count 4.09 M/mcL (3.82-4.97); Red Cell Distribution Width 14.6 % (11.5-14.5)
[2018-02-25 06:44] LABS: BUN/Creatinine Ratio 32 (6-26); Blood Urea Nitrogen 19 mg/dL (8-23); Carbon Dioxide 24 mEq/L (23-29); Chloride 106 mEq/L (98-107); Glucose 154 mg/dL (70-105); Osmolality,Calculated 295 (280-300); Potassium 4.4 mEq/L (3.5-5.1); Sodium 140 mEq/L (136-145); eGFR For African Americans > 60 (> 60); eGFR For Non-African Americans > 60 (> 60)
[2018-02-25 07:38] LABS: Lymphocytes # 2.8 K/mcL (0.6-4.6); Monocytes # 0.6 K/mcL (0.0-1.3); Neutrophils # 15.1 K/mcL (1.6-8.9)
[2018-02-25 07:39] LABS: Platelet Estimate Normal (Normal)
[2018-02-25] MEDS: Budesonide/Formoterol 80/4.5 MDI IH SCH ×2 (07:44→19:59)
[2018-02-25] MEDS ORDERED: Levofloxacin 750 MG/150 ML 750 MG/150 ML BAG IVPB SCH (09:32)
[2018-02-25] MEDS: Aspirin 81 MG TAB.CHEW PO SCH (09:51)
--- NOTE | 2018-02-25 14:57 | Internal Med Progress Note ---
Date of Encounter: 02/25/18 Time of Encounter: 10:15 - Assessment and plan (1) Asthma exacerbation Current Visit: Yes Status: Acute Assessment and plan: Improving. Patient does not follow with pulmonology, has never been diagnosed with COPD. Taper down IV steroids as tolerated. Continue IV antibiotics, breathing treatments, ICS, supplemental O2 PRN; home oxygen evaluation prior to discharge. Peripheral blood cultures negative. Qualifiers: Asthma severity: moderate Asthma persistence: unspecified Qualified Code( s): J45.901 - Unspecified asthma with (acute) exacerbation (2) Multifocal pneumonia Current Visit: Yes Status: Acute Assessment and plan: CT angiogram of chest showed bilateral upper and lower lobe base pain is disease , possible multifocal pneumonia versus inflammatory process. Urine Streptococcus pneumoniae antigen positive. Urine legionella antigen negative. Peripheral blood cultures negative. Change antibiotics to IV Levaquin. Continue supportive care and supplemental oxygen. (3) Sepsis Current Visit: Yes Status: Acute Assessment and plan: Presented with fever, leukocytosis and tachycardia. Persistent leukocytosis, likely steroid-induced. Continue IV antibiotics as mentioned above. Sepsis is now resolved. Qualifiers: Sepsis type: Pneumococcus Qualified Code(s): A40.3 - Sepsis due to Streptococcus pneumoniae (4) Acute respiratory failure with hypoxia Current Visit: Yes Status: Acute Assessment and plan: Due to pneumonia and asthma exacerbation. Home oxygen evaluation prior to discharge. (5) Morbid obesity Current Visit: Yes Status: Chronic (6) HTN (hypertension) Current Visit: Yes Status: Chronic Qualifiers: Hypertension type: essential hypertension Qualified Code(s): I10 - Essential (primary) hypertension (7) Anxiety Current Visit: Yes Status: Chronic (8) DVT prophylaxis Current Visit: Yes Status: Acute (9) Chronic diastolic (congestive) heart failure Current Visit: Yes Status: Chronic (10) Obstructive sleep apnea Current Visit: Yes Status: Chronic Assessment and plan: Patient is undergoing outpatient testing, pending CPAP initiation. - Time Spent With Patient Total time spent is greater than 50% in coordination of care (as documented) at patient's floor/unit and/or counseling patient: - Subjective Interval history: Patient reports feeling better. Improving cough, wheezing and shortness of breath. No chest pain, fever/chills, palpitations. Not on home oxygen. - Constitutional Vitals: Temp Pulse Resp BP Pulse Ox 98.3 F 84 16 147/71 97 02/25/18 11:31 02/25/18 11:31 02/25/18 11:31 02/25/18 11:31 02/25/18 11:31 General appearance: Present: cooperative, A&O X 3, morbidly obese, answers questions appropriately - Respiratory Respiratory exam: Present: decreased breath sounds (B/L decreased air entry), CTAB, wheezes (intermittent). Absent: accessory muscle use, rales, rhonchi - Cardiovascular Cardiovascular exam: Present: RRR, +S1, +S2. Absent: diastolic murmur, gallop, rubs, systolic murmur - GI/Abdominal GI/Abdominal exam: Present: normal bowel sounds, soft (obese), no peritoneal signs. Absent: distended, tenderness - Extremities Exam Extremities exam: Present: full ROM, warm, radial pulses palpable and symmetrical. Absent: calf tenderness, cyanotic, pedal edema - Neurological Exam Neurological exam: Present: CN II-XII intact, oriented X3, no focal deficits. Absent: pronater drift, facial droop, speech deficit Internal Medicine: Result - Labs CBC & Chem 7: 02/25/18 05:57 02/25/18 05:57 Labs: Short CBC 02/25/18 Range/Units 05:57 WBC 18.4 H (4.3-11.1) K/mcL Hgb 12.3 (11.5-15.4) g/dL Hct 38.1 (35.3-44.9) % Plt Count 260 (140-400) K/mcL Neutrophils # 15.1 H (1.6-8.9) K/mcL BMP 02/25/18 05:57 Sodium 140 Potassium 4.4 Chloride 106 Carbon Dioxide 24 BUN 19 Creatinine 0.59 L Glucose 154 H Calcium 9.0 - ABG Interpretation ABG results: PT/INR, D-dimer PT 10.0 Seconds (9.4-12.1) 02/21/18 08:27 D-Dimer 2911 ng/mLFEU (0-500) H 02/21/18 08:27 Consult Discharge Plan - Plan Referrals: Ely Devine DO [Primary Care Provider] - 03/03/18 9:30 am ()
[2018-02-26] MEDS: Ipratropium/Albuterol Neb 3 ML IH SCH ×4 (00:15→11:42)
[2018-02-26] MEDS: *HR* Enoxaparin 40 MG/0.4 ML SYRINGE SQ SCH (05:37)
[2018-02-26] MEDS: Budesonide/Formoterol 80/4.5 MDI IH SCH (07:37)
[2018-02-26 08:07] LABS: Basophils # 0.1 K/mcL (0.0-0.2); Basophils % 0.6 %; Hematocrit 40.6 % (35.3-44.9); Immature Granulocytes % 4.9 % (0-4); Lymphocytes # 2.5 K/mcL (0.6-4.6); Lymphocytes % 15.1 %; Mean Corpuscular Hemoglobin 29.7 pg (28.0-33.3); Mean Corpuscular Volume 92.7 fL (83.0-100.0); Mean Platelet Volume 10.1 fL (9.4-12.4); Monocytes # 1.1 K/mcL (0.0-1.3); Monocytes % 6.7 %; Neutrophils # 12.2 K/mcL (1.6-8.9); Nucleated Red Blood Cells 0.4 /100 WBC (0); Platelet Count 252 K/mcL (140-400); Red Blood Count 4.38 M/mcL (3.82-4.97); Red Cell Distribution Width 14.6 % (11.5-14.5); Segmented Neutrophils % 72.7 %
[2018-02-26 08:37] LABS: BUN/Creatinine Ratio 35 (6-26); Blood Urea Nitrogen 17 mg/dL (8-23); Calcium 9.2 mg/dL (8.6-10.3); Carbon Dioxide 27 mEq/L (23-29); Chloride 104 mEq/L (98-107); Glucose 126 mg/dL (70-105); Osmolality,Calculated 293 (280-300); Sodium 140 mEq/L (136-145); eGFR For African Americans > 60 (> 60); eGFR For Non-African Americans > 60 (> 60)
[2018-02-26] MEDS ORDERED: levoFLOXacin 750 MG TABLET PO SCH (09:00)
[2018-02-26] MEDS ORDERED: Levofloxacin 750 MG/150 ML 750 MG/150 ML BAG IVPB SCH (09:00)
[2018-02-26] MEDS: Aspirin 81 MG TAB.CHEW PO SCH (09:36)
[2018-02-26] MEDS: MethylPREDNISolone 40 MG/ML VIAL IVP SCH (09:39)
[2018-02-26 12:24] VITALS: BP 198/60
--- NOTE | 2018-02-26 13:12 | Discharge Summary ---
- NOTES TO OUTPATIENT PROVIDER Notes to Outpatient Provider: Acute asthma, Pneumonia, now on home O2 Orders not resulted at time of discharge: Pending orders 02/27/18 04:00 Basic Metabolic Panel AM 0400 CBC [Complete Blood Count] [HEME] AM 0400 02/28/18 04:00 Basic Metabolic Panel AM 0400 CBC [Complete Blood Count] [HEME] AM 0400 Date of Encounter: 02/26/18 Time of Encounter: 11:00 - Discharge Diagnosis (1) Asthma exacerbation Priority: Primary Status: Acute Qualifiers: Asthma severity: moderate Asthma persistence: unspecified Qualified Code( s): J45.901 - Unspecified asthma with (acute) exacerbation (2) Multifocal pneumonia Priority: Primary Status: Acute (3) Sepsis Priority: Primary Status: Acute Qualifiers: Sepsis type: Pneumococcus Qualified Code(s): A40.3 - Sepsis due to Streptococcus pneumoniae (4) Acute respiratory failure with hypoxia Priority: Primary Status: Acute (5) Morbid obesity Priority: Secondary Status: Chronic (6) HTN (hypertension) Priority: Secondary Status: Chronic Qualifiers: Hypertension type: essential hypertension Qualified Code(s): I10 - Essential (primary) hypertension (7) Anxiety Priority: Secondary Status: Chronic (8) Chronic diastolic (congestive) heart failure Priority: Secondary Status: Chronic (9) Obstructive sleep apnea Priority: Secondary Status: Suspected Hospital course: Ms. Brown is a 62 year old female with the above medical problems, who was admitted with worsening cough and shortness of breath. CT angiogram of chest showed no evidence of pulmonary embolism but she did have bilateral patchy infiltrates, suggestive of multifocal pneumonia. Cultures remain negative. She was started on IV antibiotics along with IV hydration. She was also noted to be in acute exacerbation of asthma, was started on IV steroids, breathing treatments, supportive care and supplemental oxygen. Patient's clinical condition significantly improved, although she continues to have some exertional dyspnea and intermittent cough. Face to face evaluation was completed for home oxygen. Patient would benefit from portable home oxygen at 2 L/m via nasal cannula, she is noted to be ambulatory at home. She is otherwise medically stable for discharge with oral antibiotics and steroids. Discharge discussed with: patient, nurse, case management - Time Spent with Patient Total time spent providing and/or coordinating discharge services: Greater than 30 minutes (45 min) - Discharge Medications Prescriptions: Fluticasone/Salmeterol [Advair 100-50 Diskus] 1 puff IH BID #2 blst.w.dev levoFLOXacin [Levaquin] 750 mg PO DAILY #6 tablet PredniSONE [Deltasone] 40 mg PO DAILY #9 tablet Home Medications: Aspirin 81 mg PO QAM 12/07/15 [History] DiphenhydraMINE [Benadryl] 50 mg PO HS 12/07/15 [History] Pantoprazole Sodium [Protonix] 40 mg PO BID 12/07/15 [History] Albuterol Sulfate [Ventolin Hfa] 2 puff IH Q4-6H #1 hfa.aer.ad 01/19/17 [Rx] Ibuprofen 800 mg PO BID PRN 11/15/17 [History] Venlafaxine [Effexor] 37.5 mg PO BID 11/15/17 [History] Metoprolol [Lopressor] 25 mg PO BID 02/21/18 [History] Simvastatin [Zocor] 20 mg PO HS 02/21/18 [History] Fluticasone/Salmeterol [Advair 100-50 Diskus] 1 puff IH BID #2 blst.w.dev [Rx] PredniSONE [Deltasone] 40 mg PO DAILY #9 tablet 02/26/18 [Rx] levoFLOXacin [Levaquin] 750 mg PO DAILY #6 tablet 02/26/18 [Rx] Allergies/Adverse Reactions: 3 Allergy/AdvReac Type Severity Reaction Status Date / Time Sulfa (Sulfonamide AdvReac See Verified 12/03/17 09:19 Antibiotics) Comments Date of admission: 02/21/18 12:14 Primary care physician: Hang Butt Discharging clinician: Ly Hazel Anticipated date of discharge: 02/26/18 - Constitutional Vitals: Temp Pulse Resp BP Pulse Ox 98.3 F 79 15 198/60 91 02/26/18 12:19 02/26/18 12:19 02/26/18 12:19 02/26/18 12:19 02/26/18 12:19 General appearance: Present: cooperative, A&O X 3, morbidly obese, answers questions appropriately - Respiratory Respiratory exam: Present: CTAB (coarse breath sounds B/L). Absent: accessory muscle use, rales, rhonchi, wheezes - Cardiovascular Cardiovascular exam: Present: RRR, +S1, +S2. Absent: diastolic murmur, gallop, rubs, systolic murmur - Patient Status Disposition: Home, Self-Care Condition: Fair Functional capacity at discharge: independent ambulation Overall status at discharge: patient is progressing back to baseline - Discharge Instructions Instructions: Pneumonia (DC) Follow Up With: Ely Devine DO [Primary Care Provider] - 03/03/18 9:30 am () Forms: Work/School Release - Diet and Activity Activity: return to work once cleared by your PCP/specialist, resume usual activities as tolerated, wear oxygen at all times Diet: low fat, low cholesterol, low salt diet
== END 2018-02-26 15:11 | disposition home or self-care (01) | DRG 871 ==
LOC: EMEROO 08:21 → 2ANU 12:14 → SUATTDRO 12:14 → 2ANU 13:04
PROVIDERS: ADMIT Family Medicine; ATTEND Internal Medicine

== ENCOUNTER 2019-11-16 03:54 | Inpatient (IN) ==
[2019-11-16] MEDS ORDERED: Ipratropium/Albuterol Neb 3 ML IH ONE (04:05)
[2019-11-16 04:33] LABS: Basophils % 0.2 %; Eosinophils # 0.1 K/mcL (0.0-0.6); Eosinophils % 0.9 %; Hemoglobin 13.2 g/dL (11.5-15.4); Immature Granulocytes % 0.3 % (0-4); Lymphocytes # 1.2 K/mcL (0.6-4.6); Lymphocytes % 10.6 %; Mean Corpuscular Hemoglobin 28.4 pg (28.0-33.3); Mean Corpuscular Volume 94.8 fL (83.0-100.0); Mean Platelet Volume 10.9 fL (9.4-12.4); Monocytes # 0.5 K/mcL (0.0-1.3); Neutrophils # 9.3 K/mcL (1.6-8.9); Platelet Count 220 K/mcL (140-400); Red Blood Count 4.64 M/mcL (3.82-4.97); Red Cell Distribution Width 14.6 % (11.5-14.5); White Blood Count 11.1 K/mcL (4.3-11.1)
[2019-11-16] MEDS ORDERED: Piperacillin/Tazobactam 3.375 GM in 0.9 % Sodium Chloride Mini Bag 100 ML IVPB ONE (04:39)
[2019-11-16 04:54] LABS: BUN/Creatinine Ratio 28 (6-26); Blood Urea Nitrogen 19 mg/dL (8-23); Calcium 9.4 mg/dL (8.6-10.3); Carbon Dioxide 25 mEq/L (23-29); Chloride 105 mEq/L (98-107); Glucose 201 mg/dL (70-105); Osmolality,Calculated 294 (280-300); Potassium 4.4 mEq/L (3.5-5.1); Sodium 138 mEq/L (136-145); eGFR For African Americans > 60 (> 60); eGFR For Non-African Americans > 60 (> 60)
[2019-11-16 04:55] LABS: Troponin I < 0.03 ng/mL (< 0.04)
[2019-11-16] MEDS ORDERED: *HR* FentaNYL (PF) 100 MCG/2 ML VIAL IVP ONE (05:02)
[2019-11-16 06:37] LABS: Prothrombin Time 11.3 Seconds (9.4-12.1)
[2019-11-16 06:40] LABS: Activated Partial Thrombo Time 25.4 Seconds (26.0-36.0)
[2019-11-16] MEDS ORDERED: Ondansetron 4 MG/2 ML VIAL IVP PRN (07:12)
[2019-11-16] MEDS ORDERED: Naloxone 0.4 MG/ML INJ IVP PRN (07:12)
[2019-11-16] MEDS ORDERED: 0.9 % Sodium Chloride 1,000 ML IVC ONE (07:13)
[2019-11-16 07:19] LABS: Adenovirus Not Detected (Not Detect); Bordetella Pertussis Not Detected (Not Detect); Chlamydophila pneumoniae Not Detected (Not Detect); Coronavirus 229E Not Detected (Not Detect); Coronavirus HKU1 Not Detected (Not Detect); Coronavirus NL63 Not Detected (Not Detect); Coronavirus OC43 Not Detected (Not Detect); Human Metapneumovirus Not Detected (Not Detect); Human Rhinovirus/Enterovirus Not Detected (Not Detect); Influenza A Subtype 2009 H1 Not Detected (Not Detect); Influenza B Not Detected (Not Detect); Mycoplasma pneumoniae Not Detected (Not Detect); Parainfluenza Virus 1 Not Detected (Not Detect); Parainfluenza Virus 2 Not Detected (Not Detect); Parainfluenza Virus 3 Not Detected (Not Detect); Parainfluenza Virus 4 Not Detected (Not Detect); Respiratory Syncytial Virus Not Detected (Not Detect)
[2019-11-16] MEDS: Nitroglycerin 0.4 MG TAB.SUBL SL SCH ×2 (08:41→08:49)
[2019-11-16] MEDS: MethylPREDNISolone 40 MG/ML VIAL IVP SCH ×2 (08:42→18:16)
[2019-11-16] MEDS: cefTRIAXone 1,000 MG in Water for inj. (sterile) 10 ML IVP SCH (08:42)
[2019-11-16] MEDS: lisinopriL 5 MG TABLET PO SCH (08:43)
[2019-11-16] MEDS: Azithromycin 500 MG in 0.9 % Sodium Chloride 250 ML IVPB SCH (08:43)
[2019-11-16 09:53] LABS: Hematocrit 33.7 % (35.3-44.9)
[2019-11-16 09:54] LABS: Hemoglobin 10.5 g/dL (11.5-15.4)
[2019-11-16] MEDS: Ipratropium/Albuterol Neb 3 ML IH SCH ×4 (10:58→20:20)
[2019-11-16] MEDS: Budesonide/Formoterol 160/4.5 1 PUFF INH IH SCH ×2 (10:58→20:20)
[2019-11-16] MEDS ORDERED: Dexamethasone 4 MG/ML VIAL ONE (10:59)
[2019-11-16] MEDS ORDERED: *HR* Propofol 200 MG/20 ML VIAL IVP ONE (10:59)
[2019-11-16] MEDS ORDERED: Lidocaine -MPF 2% 2 ML VIAL ONE ×2 (10:59→11:02)
[2019-11-16] MEDS ORDERED: Lidocaine -MPF 4% 5 ML AMPUL ONE (10:59)
[2019-11-16] MEDS ORDERED: Ondansetron 4 MG/2 ML VIAL ONE (10:59)
[2019-11-16] MEDS ORDERED: Albuterol 2.5 MG/3 ML NEBULIZER ONE (11:11)
[2019-11-16] MEDS ORDERED: *HR* Succinylcholine 200 MG/10 ML VIAL IVP ONE (11:15)
[2019-11-16 19:16] LABS: Bilirubin,Urine Negative (Negative); Blood,Urine Negative (Negative); Clarity,Urine Cloudy (Clear); Color,Urine Yellow (Yellow); Glucose,Urine (UA) Normal (Normal); Ketones,Urine Negative (Negative); Leukocyte Esterase,Urine Negative (Negative); Nitrite,Urine Negative (Negative); PH,Urine 6.5 pH Units (5.0-8.0); Protein,Urine Negative (Neg-Trace); Specific Gravity,Urine 1.014 (1.010-1.025); Urobilinogen,Urine Normal (Normal)
[2019-11-16 19:20] LABS: Bacteria,Urine None Seen per hpf (None-Few); Hyaline Casts,Urine None Seen per lpf (None-Few); Squamous Epithelial Cell,Urine Moderate per lpf (None-Few); WBC,Urine 0-3 per hpf (0-3)
[2019-11-16 20:16] LABS: RBC,Urine 0-3 per hpf (0-3)
[2019-11-16 20:17] LABS: Yeast,Urine Few per hpf (None Seen)
[2019-11-17] MEDS: Ipratropium/Albuterol Neb 3 ML IH SCH ×7 (00:16→23:50)
[2019-11-17 03:38] LABS: Basophils % 0.1 %; Hematocrit 36.9 % (35.3-44.9); Hemoglobin 11.5 g/dL (11.5-15.4); Immature Granulocytes % 0.3 % (0-4); Lymphocytes % 5.9 %; Mean Corpuscular HGB Conc 31.2 g/dL (31.6-35.5); Mean Corpuscular Hemoglobin 29.6 pg (28.0-33.3); Mean Corpuscular Volume 94.9 fL (83.0-100.0); Mean Platelet Volume 10.7 fL (9.4-12.4); Monocytes # 0.6 K/mcL (0.0-1.3); Monocytes % 3.6 %; Platelet Count 211 K/mcL (140-400); Red Blood Count 3.89 M/mcL (3.82-4.97); Segmented Neutrophils % 90.1 %
[2019-11-17 03:44] LABS: White Blood Count 17.7 K/mcL (4.3-11.1)
[2019-11-17 03:56] LABS: BUN/Creatinine Ratio 29 (6-26); Blood Urea Nitrogen 22 mg/dL (8-23); Calcium 9.3 mg/dL (8.6-10.3); Carbon Dioxide 25 mEq/L (23-29); Chloride 105 mEq/L (98-107); Glucose 330 mg/dL (70-105); Magnesium 1.8 mg/dL (1.6-2.6); Osmolality,Calculated 298 (280-300); Potassium 4.4 mEq/L (3.5-5.1); Sodium 136 mEq/L (136-145); eGFR For African Americans > 60 (> 60); eGFR For Non-African Americans > 60 (> 60)
[2019-11-17] MEDS: MethylPREDNISolone 40 MG/ML VIAL IVP SCH ×2 (05:11→16:59)
[2019-11-17] MEDS: Budesonide/Formoterol 160/4.5 1 PUFF INH IH SCH ×2 (07:30→19:53)
[2019-11-17] MEDS: cefTRIAXone 1,000 MG in Water for inj. (sterile) 10 ML IVP SCH (09:56)
[2019-11-17] MEDS: lisinopriL 5 MG TABLET PO SCH (09:56)
[2019-11-17] MEDS: Azithromycin 500 MG in 0.9 % Sodium Chloride 250 ML IVPB SCH (09:57)
[2019-11-17] MEDS ORDERED: Nitroglycerin 0.4 MG TAB.SUBL SL PRN (11:59)
[2019-11-17] MEDS ORDERED: D5% in Water 1,000 ML IVC PRN (12:04)
[2019-11-17] MEDS ORDERED: Dextrose Gel 15 GM/37.5 ML TUBE PO PRN ×2 (12:04)
[2019-11-17] MEDS ORDERED: *HR* Dextrose 50 % in Water (Syg) 50 ML SYRINGE IVP PRN (12:04)
[2019-11-17] MEDS: Ibuprofen 800 MG TABLET PO PRN (12:13)
[2019-11-17 14:58] LABS: Appearance of Body Fluid Slightly Hazy (Clear); Volume of Body Fluid 25 mL
[2019-11-17] MEDS: Insulin LISPRO 300 UNITS/3 ML VIAL SQ SCH (16:58)
[2019-11-17] MEDS ORDERED: Benzonatate 100 MG CAPSULE PO PRN (19:45)
[2019-11-17] MEDS ORDERED: Insulin DETEMIR 100 UNIT/ML X5UNITS SQ SCH (21:00)
[2019-11-18] MEDS: Ipratropium/Albuterol Neb 3 ML IH SCH ×6 (03:59→23:46)
[2019-11-18 04:10] LABS: Hematocrit 35.2 % (35.3-44.9); Mean Corpuscular HGB Conc 31.3 g/dL (31.6-35.5); Mean Corpuscular Hemoglobin 29.7 pg (28.0-33.3); Mean Corpuscular Volume 95.1 fL (83.0-100.0); Mean Platelet Volume 10.8 fL (9.4-12.4); Platelet Count 231 K/mcL (140-400); White Blood Count 19.1 K/mcL (4.3-11.1)
[2019-11-18 04:37] LABS: BUN/Creatinine Ratio 42 (6-26); Blood Urea Nitrogen 31 mg/dL (8-23); Calcium 9.3 mg/dL (8.6-10.3); Carbon Dioxide 24 mEq/L (23-29); Chloride 105 mEq/L (98-107); Glucose 319 mg/dL (70-105); Osmolality,Calculated 301 (280-300); Potassium 4.6 mEq/L (3.5-5.1); Sodium 136 mEq/L (136-145); eGFR For African Americans > 60 (> 60); eGFR For Non-African Americans > 60 (> 60)
[2019-11-18] MEDS: MethylPREDNISolone 40 MG/ML VIAL IVP SCH (05:14)
[2019-11-18] MEDS: Budesonide/Formoterol 160/4.5 1 PUFF INH IH SCH ×2 (07:26→19:50)
[2019-11-18] MEDS: cefTRIAXone 1,000 MG in Water for inj. (sterile) 10 ML IVP SCH (09:03)
[2019-11-18] MEDS: lisinopriL 5 MG TABLET PO SCH (09:03)
[2019-11-18] MEDS: predniSONE 20 MG TABLET PO SCH (09:03)
[2019-11-18] MEDS: Azithromycin 250 MG TABLET PO SCH (09:03)
[2019-11-18] MEDS: Fluticasone Propionate Nasal 50 MCG/SPRAY BOTTLE NS SCH (09:06)
[2019-11-18] MEDS: Insulin LISPRO 300 UNITS/3 ML VIAL SQ SCH ×3 (09:06→17:00)
[2019-11-18] MEDS: Ibuprofen 800 MG TABLET PO PRN (09:11)
[2019-11-18 09:56] LABS: Serine Protease-3 Antibody 1 AU/mL (0-19)
[2019-11-18 10:05] LABS: ANA IgG by ELISA NONE DETECTED (None Detected)
[2019-11-18 16:24] LABS: Estimated Average Glucose 163 mg/dl
[2019-11-18] MEDS ORDERED: Insulin LISPRO 300 UNITS/3 ML VIAL SQ SCH ×2 (16:30→21:00)
[2019-11-18] MEDS ORDERED: Insulin DETEMIR 100 UNIT/ML X5UNITS SQ SCH (21:00)
[2019-11-19] MEDS: Ibuprofen 800 MG TABLET PO PRN ×2 (00:15→10:15)
[2019-11-19] MEDS: Ipratropium/Albuterol Neb 3 ML IH SCH ×3 (03:22→11:28)
[2019-11-19 05:46] LABS: Hematocrit 35.8 % (35.3-44.9); Hemoglobin 10.9 g/dL (11.5-15.4); Mean Corpuscular HGB Conc 30.4 g/dL (31.6-35.5); Mean Corpuscular Hemoglobin 29.2 pg (28.0-33.3); Mean Platelet Volume 11.1 fL (9.4-12.4); Platelet Count 196 K/mcL (140-400); Red Blood Count 3.73 M/mcL (3.82-4.97); Red Cell Distribution Width 14.9 % (11.5-14.5); White Blood Count 15.2 K/mcL (4.3-11.1)
[2019-11-19 06:07] LABS: BUN/Creatinine Ratio 45 (6-26); Blood Urea Nitrogen 33 mg/dL (8-23); Calcium 9.1 mg/dL (8.6-10.3); Carbon Dioxide 28 mEq/L (23-29); Chloride 109 mEq/L (98-107); Glucose 136 mg/dL (70-105); Osmolality,Calculated 299 (280-300); Potassium 4.2 mEq/L (3.5-5.1); Sodium 140 mEq/L (136-145); eGFR For African Americans > 60 (> 60); eGFR For Non-African Americans > 60 (> 60)
[2019-11-19] MEDS: Budesonide/Formoterol 160/4.5 1 PUFF INH IH SCH (07:29)
[2019-11-19] MEDS: Insulin LISPRO 300 UNITS/3 ML VIAL SQ SCH (08:19)
[2019-11-19] MEDS: lisinopriL 5 MG TABLET PO SCH (08:31)
[2019-11-19] MEDS: Azithromycin 250 MG TABLET PO SCH (08:32)
[2019-11-19] MEDS: predniSONE 20 MG TABLET PO SCH (08:32)
[2019-11-19] MEDS: Fluticasone Propionate Nasal 50 MCG/SPRAY BOTTLE NS SCH (08:32)
[2019-11-19] MEDS ORDERED: CefTRIAXone 1,000 MG VIAL ONE (08:48)
[2019-11-19] MEDS: cefTRIAXone 1,000 MG in Water for inj. (sterile) 10 ML IVP SCH (08:48)
[2019-11-19 11:47] VITALS: BP 151/81
[2019-11-19 14:34] LABS: Influenza A PCR Body Fluid NOT DETECTED; Influenza B PCR Body Fluid NOT DETECTED; RVP Body Fluid Source BAL
[2019-11-19 14:41] LABS: RSV PCR Body Fluid NOT DETECTED
== END 2019-11-19 12:43 | disposition home or self-care (01) ==
LOC: EMEROOARM 03:54 → 2ANU 03:54 → SUATTDRO 06:14 → 2ANU 06:28
PROVIDERS: ADMIT Student in an Organized Health Care Education/Training Program; ATTEND Internal Medicine